=== PATIENT | male | born 1965 | race Caucasian/White ===

== ENCOUNTER 2021-09-24 09:39 | Inpatient (IN) | payer MEDICARE, OTHER ==
[~2021-09-24] VITALS: Ht 186.7 cm; Wt 85.7 kg
--- NOTE | 2021-09-24 09:40 | NUR ---
RAMA FROM [facility] C/O COUGH AND CONGESTION SINCE SUNDAY, "STARTED RADIATION TX FOR LUNG CANCER LAST WEEK", 100% ON NON REBREATHER 15L, USUALLY ON O2 IN THE FACILITY AT 4LPM, AAOX3, BREATHING EVEN AND NON LABORED, CONNECTED TO MONITOR, CHANGED INTO A GOWN, AWAITING MD NUNEZ
[2021-09-24] MEDS ORDERED: IV NS 0.9% 500 ML BAG IV ONE (10:00)
--- NOTE | 2021-09-24 10:13 | NUR ---
UNABLE TO PROVIDE URINE AT THIS TIME
--- NOTE | 2021-09-24 10:25 | NUR ---
RN OBGYN AT BEDSIDE
--- NOTE | 2021-09-24 10:29 | NUR ---
COVID SWAB DONE AND SENT TO LAB
[2021-09-24 10:41] LABS: BASOPHILS % (AUTO) 0.1 % (0.0-2.0); EOSINOPHILS % (AUTO) 0.6 % (0.0-6.0); HEMATOCRIT 33 % (39-51); HEMOGLOBIN 11.2 g/dL (13.5-17.5); LYMPHOCYTES # (AUTO) 0.1 K/uL (0.8-4.8); LYMPHOCYTES % (AUTO) 1.6 % (20.0-44.0); MEAN CORPUSCULAR HGB CONC 34 g/dl (31.0-36.0); MEAN CORPUSCULAR VOLUME 80 fL (80-96); MONOCYTES # (AUTO) 0.4 K/uL (0.1-1.30); MONOCYTES % (AUTO) 5.2 % (2.0-12.0); NEUTROPHILS # (AUTO) 6.7 K/uL (1.8-8.9); NEUTROPHILS % (AUTO) 92.5 % (43.0-81.0); PLATELET COUNT (AUTO) 160 K/uL (150-450); RED BLOOD CELL COUNT(AUTO) 4.15 MIL/uL (4.5-6.0); WHITE BLOOD COUNT (AUTO) 7.3 K/uL (4.3-11.0)
[2021-09-24 10:57] LABS: ALANINE AMINOTRANSFERASE 92 U/L (12-78); ALBUMIN 1.8 g/dL (3.4-5.0); ALKALINE PHOSPHATASE 83 U/L (46-116); ASPARTATE AMINOTRANSFERASE 32 U/L (15-37); BILIRUBIN,DIRECT 0.1 mg/dL (0.0-0.2); BILIRUBIN,TOTAL 0.2 mg/dL (0.2-1.0); CALCIUM, SERUM 8.3 mg/dL (8.5-10.1); CARBON DIOXIDE 30 mmol/L (21-32); CHLORIDE 87 mmol/L (98-107); CREATININE 0.4 mg/dL (0.6-1.3); GLUCOSE 138 mg/dL (74-106); POTASSIUM 3.7 mmol/L (3.5-5.1); SODIUM SERUM 121 mmol/L (136-145); TOTAL PROTEIN, SERUM 5.7 g/dL (6.4-8.2); UREA NITROGEN, BLOOD 9 mg/dL (7-18)
--- NOTE | 2021-09-24 11:05 | NUR ---
URINE COLLECTED AND SENT TO LAB
[2021-09-24] MEDS ORDERED: CEFTRIAXONE 1GM BAG (ER ONLY) 50 ML IV ONE (11:07)
--- NOTE | 2021-09-24 11:13 | NUR ---
SISTER AND CONSERVATOR ROMELIA [phone]
[2021-09-24] MEDS ORDERED: CEFTRIAXONE 1GM BAG (ER ONLY) 1 GM/50 ML PIGGYBACK IV ONE (11:30)
[2021-09-24] MEDS ORDERED: AZITHROMYCIN 500 MG in IV D5W 250 ML IV ONE (11:30)
[2021-09-24 11:38] LABS: BILIRUBIN,URINE NEGATIVE (NEGATIVE); COLOR,URINE YELLOW (YELLOW); LEUKOCYTE ESTERASE ,URINE NEGATIVE (NEGATIVE); NITRITE, URINE NEGATIVE (NEGATIVE); PROTEIN,URINE NEGATIVE (NEGATIVE); UGLUCOSE NEGATIVE (NEGATIVE)
--- NOTE | 2021-09-24 12:07 | NUR ---
CALLED NURSE SUP REGARDING PT BED
[2021-09-24] MEDS ORDERED: CHOL200013 PO (12:20)
[2021-09-24] MEDS ORDERED: CALC1TAB30 PO (12:20)
[2021-09-24] MEDS ORDERED: RISP0.5T5 PO (12:20)
[2021-09-24] MEDS ORDERED: PANT40TA2 PO (12:20)
[2021-09-24] MEDS ORDERED: SENN-175 PO (12:20)
[2021-09-24] MEDS ORDERED: APIX5TAB PO (12:20)
[2021-09-24] MEDS ORDERED: DEME150T13 PO (12:20)
[2021-09-24] MEDS ORDERED: DILT180C66 PO (12:20)
[2021-09-24] MEDS ORDERED: TOLV30TA PO (12:20)
[2021-09-24] MEDS ORDERED: AMIN887L PO (12:20)
[2021-09-24] MEDS ORDERED: ZINC220T4 PO (12:20)
[2021-09-24] MEDS ORDERED: SODI100037 PO (12:20)
[2021-09-24] MEDS ORDERED: ASCO500C17 PO (12:20)
[2021-09-24] MEDS ORDERED: OLAN20TA3 PO (12:20)
[2021-09-24] MEDS ORDERED: METO50TA16 PO (12:20)
[2021-09-24] MEDS ORDERED: FURO-145 PO (12:20)
[2021-09-24] MEDS ORDERED: MULT-439 PO (12:20)
--- NOTE | 2021-09-24 12:21 | NUR ---
ROOM 104
--- NOTE | 2021-09-24 12:45 | NUR ---
REPORT GIVEN TO BRODY PAYTON FOR NIA, GOING TO 108 INSTEAD
--- NOTE | 2021-09-24 12:59 | NUR ---
TRANSFERRED TO BED 108 IN STABLE CONDITION
[2021-09-24] MEDS ORDERED: MAG HYDROX/AL HYDROX/SIMETH 30 ML UDC PO PRN (15:00)
[2021-09-24] MEDS ORDERED: ENOXAPARIN SODIUM 40 MG/0.4 ML DISP.SYRIN SQ SCH (15:00)
[2021-09-24] MEDS ORDERED: ZOLPIDEM TARTRATE 5 MG TABLET PO PRN (15:00)
[2021-09-24] MEDS ORDERED: ONDANSETRON HCL/PF 4 MG/2 ML VIAL IVP PRN (15:00)
[2021-09-24] MEDS ORDERED: ACETAMINOPHEN 325 MG TABLET PO PRN (15:00)
[2021-09-24] MEDS ORDERED: Z GUARD REMEDY 4 OZ OINT TP PRN (15:00)
[2021-09-24] MEDS ORDERED: MAGNESIUM HYDROXIDE 30 ML UDC PO PRN (15:00)
[2021-09-24 15:48] LABS: CALCIUM, SERUM 8.2 mg/dL (8.5-10.1); CREATININE 0.4 mg/dL (0.6-1.3); POTASSIUM 3.5 mmol/L (3.5-5.1)
[2021-09-24 16:00] VITALS: BP 133/65
[2021-09-24] MEDS: PROSTAT (PYXIS) 30 ML UDC PO SCH (17:00)
[2021-09-24] MEDS ORDERED: DEMECLOCYCLINE HCL 150 MG TABLET PO SCH (17:00)
[2021-09-24] MEDS: METOPROLOL TARTRATE 50 MG TABLET PO SCH (18:00)
[2021-09-24] MEDS: SODIUM CHLORIDE 1000 MG TABLET PO SCH (18:00)
[2021-09-24] MEDS: risperiDONE 0.25 MG TABLET PO SCH (18:01)
[2021-09-24] MEDS: APIXABAN 5 MG TABLET PO SCH (18:03)
--- NOTE | 2021-09-24 19:33 | NUR ---
RN NOTE PT RESTING IN BED, ALERT AND RESPONSIVE. ON O2 @ 4L VIA NC. WITH O2 SAT OF 94-96. PT STILL NOTED WITH LABORED BREATHING. IVF ON L HAND G22 IN PLACE AND PATENT. ON IVF NS@75/HR. DUE MEDS GIVEN. PM CARE DONE. WILL CONTINUE TO MONITOR.
--- NOTE | 2021-09-24 19:33 | NUR ---
RN NOTES RECEIVED PT FOR CONTINUITY OF CARE. PATIENT IN BED RESTING COMFORTABLY. PT A/OX4 IN NO S/SX OF ACUTE DISTRESS AT THIS TIME; CURRENTLY ON 4L OF 02 VIA NC WITH 02 SAT 95% AT THIS TIME. WILL ENSURE SAFETY MEASURES WITHIN THE SHIFT. PATIENT BED ALARM IS ON. HEAD OF BED ELEVATED. BED IS LOCKED, IN LOWEST POSITION AND SIDE RAILS UP. CALL LIGHT WITHIN REACH OF THE PATIENT. APPLICABLE ISOLATION PRECAUTIONS IN PLACE. WILL CONTINUE TO MONITOR AND REASSESS FOR ANY CHANGES AND WILL CARRY OUT ANY ONGOING AND ACTIVE MD ORDER.
[2021-09-24 20:00] VITALS: BP 112/70
--- NOTE | 2021-09-24 20:07 | NUR ---
RN NOTES PT COMPLAINED OF SOB, UPON ASSESSMENT PT HAVING WHEEZES, MILD PRODUCTIVE COUGH AND SOB. NOTIFIED ONCNETTA WILKINS (BRITTANY FREGOSO) AND ACKNOWLEDGED. ORDERS PLACED BY MD. WILL CARRY OUT ORDERED. ASSISTANT ATHLETIC TRAINER MADE AWARE.
[2021-09-24] MEDS: methylPREDNISolone SOD SUCC 40 MG/ML VIAL IV SCH (20:13)
[2021-09-24] MEDS: SENNOSIDES 8.6 MG TABLET PO SCH (20:13)
[2021-09-24] MEDS: IPRATROPIUM NEB FS 0.5 MG/2.5 ML AMPUL.NEB NEB SCH (20:26)
[2021-09-24] MEDS: ALBUTEROL FS 2.5 MG/0.5 ML VIAL.NEB NEB SCH (20:26)
[2021-09-24] MEDS ORDERED: BENZONATATE 100 MG CAPSULE PO PRN (20:30)
[2021-09-24] MEDS: OLANZAPINE 10 MG TABLET PO SCH (22:13)
[2021-09-25] VITALS: BP_SYST 107; BP_SYST 117; BP_DIAS 76; BP_DIAS 78
[2021-09-25] MEDS: ALBUTEROL FS 2.5 MG/0.5 ML VIAL.NEB NEB SCH ×2 (01:58→08:48)
[2021-09-25] MEDS: IPRATROPIUM NEB FS 0.5 MG/2.5 ML AMPUL.NEB NEB SCH ×4 (01:58→20:15)
[2021-09-25 04:00] VITALS: BP_SYST 108; BP_SYST 126; BP_DIAS 69; BP_DIAS 86
--- NOTE | 2021-09-25 04:00 | NUR ---
RN NOTES NO NOTED CHANGES IN PATIENT CONDITION AT THIS TIME; PATIENT VITALS STABLE, NO SIGNS OF ACUTE RESPIRATORY DISTRESS. AM PATIENT CARE RENDERED.WILL CONTINUE TO MONITOR AND REASSESS FOR ANY CHANGES THROUGHOUT THE SHIFT.
[2021-09-25 06:06] LABS: BASOPHILS % (AUTO) 0.2 % (0.0-2.0); HEMATOCRIT 31 % (39-51); HEMOGLOBIN 10.4 g/dL (13.5-17.5); LYMPHOCYTES # (AUTO) 0.1 K/uL (0.8-4.8); LYMPHOCYTES % (AUTO) 1.8 % (20.0-44.0); MEAN CORPUSCULAR HGB CONC 34 g/dl (31.0-36.0); MEAN CORPUSCULAR VOLUME 81 fL (80-96); MONOCYTES # (AUTO) 0.1 K/uL (0.1-1.30); MONOCYTES % (AUTO) 2.8 % (2.0-12.0); NEUTROPHILS # (AUTO) 3.2 K/uL (1.8-8.9); NEUTROPHILS % (AUTO) 95.2 % (43.0-81.0); PLATELET COUNT (AUTO) 171 K/uL (150-450); RED BLOOD CELL COUNT(AUTO) 3.86 MIL/uL (4.5-6.0); WHITE BLOOD COUNT (AUTO) 3.3 K/uL (4.3-11.0)
--- NOTE | 2021-09-25 06:47 | NUR ---
RN CLOSING NOTE: PATIENT REMAINS IN ROOM IN NO SIGNS OF RESPIRATORY DISTRESS, PATIENT STILL ON 4L OF 02 VIA NC ;TOLERATING WELL SATURATING @ >95% SP02. SAFETY MEASURES IMPLEMENTED, BED IN LOWEST POSITION, LOCKED, SIDE RAILS UP, CALL LIGHT WITHIN REACH. ALL NEEDS AND ORDERS ADDRESSED DURING THE SHIFT. IV ACCESS MAINTAINED INTACT, SECURED AND FLUSHING WELL. ALL DUE MEDS GIVEN ORDERED & SCHEDULED ; PATIENT TOLERATED WELL. PATIENT KEPT CLEAN AND COMFORTABLE WITHIN THE SHIFT. PATIENT ENDORSED TO INCOMING SHIFT RN WITH STABLE VITAL SIGN AND FOR CONTINUITY OF CARE.
--- NOTE | 2021-09-25 07:31 | NUR ---
RN OPENING NOTE RECEIVED PATIENT A/OX4.NO CURRENT COMPLAINTS OF PAIN OR SOB. ON 4L NC TOLERATING WELL. PATIENT NOTED TO HAVE LEFT HAND 22g IV PATENT WITH NO SIGNS OF INFILTRATION. SAFETY MEASURE SIN PLACE, BED LOCKED IN THE LOWEST POSITION, WITH 2 SIDE RAILS UP, SEMI FOWLERS POSITION AND CALL LIGHT WITHIN REACH.
[2021-09-25 08:00] VITALS: BP 128/80
[2021-09-25 08:13] LABS: CALCIUM, SERUM 8.2 mg/dL (8.5-10.1); CREATININE 0.4 mg/dL (0.6-1.3); MAGNESIUM 1.9 mg/dL (1.8-2.4); POTASSIUM 4.1 mmol/L (3.5-5.1)
[2021-09-25] MEDS: ZINC SULFATE 220 MG CAPSULE PO SCH (08:52)
[2021-09-25] MEDS: SENNOSIDES 8.6 MG TABLET PO SCH ×2 (08:52→21:05)
[2021-09-25] MEDS: risperiDONE 0.25 MG TABLET PO SCH ×2 (08:52→17:23)
[2021-09-25] MEDS: methylPREDNISolone SOD SUCC 40 MG/ML VIAL IV SCH ×2 (08:52→17:24)
[2021-09-25] MEDS: PANTOPRAZOLE 40 MG TABLET.DR PO SCH (08:53)
[2021-09-25] MEDS: ASCORBIC ACID 500 MG TABLET PO SCH (08:53)
[2021-09-25] MEDS: SODIUM CHLORIDE 1000 MG TABLET PO SCH ×3 (08:53→17:24)
[2021-09-25] MEDS: CHOLECALCIFEROL 1,000 UNIT TABLET (VIT D3) PO SCH (08:53)
[2021-09-25] MEDS: MULTIVIT W/MINERALS 1 TAB TABLET PO SCH (08:53)
[2021-09-25] MEDS: METOPROLOL TARTRATE 50 MG TABLET PO SCH ×2 (08:54→17:23)
[2021-09-25] MEDS: APIXABAN 5 MG TABLET PO SCH ×2 (08:55→17:25)
[2021-09-25] MEDS ORDERED: TOLVAPTAN 15 MG PO SCH (09:00)
[2021-09-25] MEDS ORDERED: PANTOPRAZOLE 40 MG TABLET.DR PO SCH (09:00)
[2021-09-25] MEDS ORDERED: DILTIAZEM HCL CD 180 MG PO SCH (09:00)
[2021-09-25] MEDS: PROSTAT (PYXIS) 30 ML UDC PO SCH ×2 (09:08→17:27)
[2021-09-25 12:00] VITALS: BP 117/82
[2021-09-25] MEDS: DILTIAZEM HCL 30 MG TABLET PO SCH ×2 (13:22→17:23)
[2021-09-25 14:23] LABS: CALCIUM, SERUM 8.3 mg/dL (8.5-10.1); CREATININE 0.7 mg/dL (0.6-1.3); MAGNESIUM 1.7 mg/dL (1.8-2.4); PHOSPHORUS 2.9 mg/dL (2.5-4.9); POTASSIUM 4.2 mmol/L (3.5-5.1)
[2021-09-25 14:35] LABS: THYROID STIMULATING HORMONE 0.915 uIU/mL (0.358-3.74)
[2021-09-25] MEDS: CEFTRIAXONE 1 G in IV D5W 50 ML IV SCH (15:07)
[2021-09-25] MEDS: ALBUTEROL HALF STRENGTH 1.25 MG/3 ML VIAL.NEB NEB SCH ×2 (15:25→20:15)
[2021-09-25 16:00] VITALS: BP 125/70
[2021-09-25] MEDS ORDERED: MAGNESIUM OXIDE 400 MG TABLET PO ONE (16:00)
[2021-09-25] MEDS: AZITHROMYCIN 500 MG in IV D5W 250 ML IV SCH (16:26)
--- NOTE | 2021-09-25 18:53 | NUR ---
RN CLOSING NOTE: PATIENT REMAINS IN ROOM IN NO SIGNS OF RESPIRATORY DISTRESS, PATIENT STILL ON 4L OF 02 VIA NC ;. SAFETY MEASURES IMPLEMENTED, BED IN LOWEST POSITION, LOCKED, SIDE RAILS UP, CALL LIGHT WITHIN REACH. ALL NEEDS AND ORDERS ADDRESSED DURING THE SHIFT. IV ACCESS MAINTAINED INTACT, SECURED AND FLUSHING WELL. ALL DUE MEDS GIVEN ORDERED & SCHEDULED ; PATIENT TOLERATED WELL. PATIENT KEPT CLEAN AND COMFORTABLE WITHIN THE SHIFT. WILL ENDORSE TO NIGHT NURSE FOR NIA.
[2021-09-25 20:00] VITALS: BP 104/66
[2021-09-25] MEDS: OLANZAPINE 10 MG TABLET PO SCH (21:05)
[2021-09-26] VITALS: BP_SYST 117; BP_SYST 126; BP_DIAS 78; BP_DIAS 86
[2021-09-26] MEDS: IPRATROPIUM NEB FS 0.5 MG/2.5 ML AMPUL.NEB NEB SCH ×4 (01:48→20:10)
[2021-09-26] MEDS: ALBUTEROL HALF STRENGTH 1.25 MG/3 ML VIAL.NEB NEB SCH ×4 (01:48→20:09)
[2021-09-26] MEDS: IV NS 0.9% 1,000 ML IV PRN (03:26)
[2021-09-26 04:00] VITALS: BP 126/86
--- NOTE | 2021-09-26 06:55 | NUR ---
RN CLOSING NOTE, PATIENT IN BED, NO SOB/ACUTE DISTRESS NOTED, ON 4L OF VIA NC, NSR IN TELE MONITOR WITH HR 60-90S, NO SIGNIFICANT CHANGE IN CONDITION DURING THE NIGHT, ALL SAFETY MEASURES IMPLEMENTED, BED LOCKED AND LOWEST POSITION, SIDE RAILS UP, CALL LIGHT WITHIN REACH, PATIENT KEPT DRY AND CLEAN, WILL ENDORSE CONTINUITY OF CARE TO ONCOMING NURSE.
[2021-09-26 07:19] LABS: BASOPHILS % (AUTO) 0.3 % (0.0-2.0); HEMATOCRIT 32 % (39-51); HEMOGLOBIN 10.6 g/dL (13.5-17.5); LYMPHOCYTES # (AUTO) 0.1 K/uL (0.8-4.8); LYMPHOCYTES % (AUTO) 2.2 % (20.0-44.0); MEAN CORPUSCULAR HGB CONC 34 g/dl (31.0-36.0); MEAN CORPUSCULAR VOLUME 81 fL (80-96); MONOCYTES # (AUTO) 0.3 K/uL (0.1-1.30); MONOCYTES % (AUTO) 5.2 % (2.0-12.0); NEUTROPHILS # (AUTO) 4.7 K/uL (1.8-8.9); NEUTROPHILS % (AUTO) 92.3 % (43.0-81.0); PLATELET COUNT (AUTO) 191 K/uL (150-450); WHITE BLOOD COUNT (AUTO) 5.1 K/uL (4.3-11.0)
[2021-09-26] MEDS: PANTOPRAZOLE 40 MG TABLET.DR PO SCH (07:30)
[2021-09-26 07:39] LABS: ALBUMIN 1.8 g/dL (3.4-5.0); BILIRUBIN,TOTAL 0.1 mg/dL (0.2-1.0); CALCIUM, SERUM 8.3 mg/dL (8.5-10.1); CREATININE 0.4 mg/dL (0.6-1.3); MAGNESIUM 1.8 mg/dL (1.8-2.4); PHOSPHORUS 3.1 mg/dL (2.5-4.9); POTASSIUM 4.1 mmol/L (3.5-5.1); TOTAL PROTEIN, SERUM 5.4 g/dL (6.4-8.2)
[2021-09-26 08:00] VITALS: BP 126/86
[2021-09-26] MEDS: methylPREDNISolone SOD SUCC 40 MG/ML VIAL IV SCH ×2 (08:52→18:03)
[2021-09-26] MEDS: ASCORBIC ACID 500 MG TABLET PO SCH (08:53)
[2021-09-26] MEDS: CHOLECALCIFEROL 1,000 UNIT TABLET (VIT D3) PO SCH (08:53)
[2021-09-26] MEDS: MULTIVIT W/MINERALS 1 TAB TABLET PO SCH (08:53)
[2021-09-26] MEDS: SODIUM CHLORIDE 1000 MG TABLET PO SCH ×3 (08:53→18:02)
[2021-09-26] MEDS: DILTIAZEM HCL 30 MG TABLET PO SCH ×3 (08:53→18:02)
[2021-09-26] MEDS: ZINC SULFATE 220 MG CAPSULE PO SCH (08:54)
[2021-09-26] MEDS: SENNOSIDES 8.6 MG TABLET PO SCH ×2 (08:54→21:44)
[2021-09-26] MEDS: METOPROLOL TARTRATE 50 MG TABLET PO SCH ×2 (08:54→18:01)
[2021-09-26] MEDS: risperiDONE 0.25 MG TABLET PO SCH ×2 (08:55→18:02)
[2021-09-26] MEDS: APIXABAN 5 MG TABLET PO SCH ×2 (08:58→18:04)
[2021-09-26] MEDS: PROSTAT (PYXIS) 30 ML UDC PO SCH ×2 (09:00→18:05)
[2021-09-26 12:00] VITALS: BP 126/89
[2021-09-26 16:00] VITALS: BP 122/85
[2021-09-26] MEDS: CEFTRIAXONE 1 G in IV D5W 50 ML IV SCH (16:02)
[2021-09-26] MEDS: AZITHROMYCIN 500 MG in IV D5W 250 ML IV SCH (16:02)
--- NOTE | 2021-09-26 19:25 | NUR ---
RN OPENING NOTE: RECEIVED REPORT AT PATIENT'S BEDSIDE. PATIENT ALERT AND ORIENTED X4. COMMUNICATIVE. INTERMITTENT DYSPNEA AT REST. PATIENT DEMONSTRATES PURSED LIP BREATHING TECHNIQUES. NO C/O DISTRESS. SPO2 93% ON 4L O2 VIA NC. TELEMETRY READING SR. DENIES PAIN. IV ACCESS TO L HAND 22 GAUGE INFUSING NS @ 75ML/HR. SAFETY MEASURES IN PLACE: BED IN LOW, LOCKED POSITION, SIDE RAILS UP X2, HOB ELEVATED TO SEMI-CONDE'S POSITION. PATIENT DEMONSTRATES ABILITY TO USE CALL LIGHT AND VERBALIZE NEEDS EFFECTIVELY. CALL LIGHT AND FREQUENTLY USED ITEMS WITHIN REACH.
--- NOTE | 2021-09-26 19:45 | NUR ---
RN NOTE, PATIENT RESTING IN BED, ON 4L OF 02 VIA NC, NOTED WITH MINIMAL LABORED BREATHING BUT WITH O2 SAT OF 93-95. NSR IN TELE MONITOR. ALL SAFETY MEASURES IMPLEMENTED, BED LOCKED AND LOWEST POSITION, SIDE RAILS UP, CALL LIGHT WITHIN REACH, PATIENT KEPT DRY AND CLEAN. DUE MEDS GIVEN. NEEDS ATTENDED.
[2021-09-26 20:00] VITALS: BP 121/81
--- NOTE | 2021-09-26 21:15 | NUR ---
INSTRUMENT CHECKER NOTIFIED RE: ICU REPORT TELEMETRY READING SR WITH ST ELEVATION. PROVIDED COMPARISON OF ADMISSION EKG. NEW ORDER FOR EKG.
[2021-09-26] MEDS: OLANZAPINE 10 MG TABLET PO SCH (21:45)
--- NOTE | 2021-09-26 22:00 | NUR ---
EKG RESULT NSR.
[2021-09-27] VITALS: BP 134/92
[2021-09-27] MEDS: IV NS 0.9% 1,000 ML IV PRN ×2 (00:48→15:55)
[2021-09-27] MEDS: IPRATROPIUM NEB FS 0.5 MG/2.5 ML AMPUL.NEB NEB SCH ×4 (02:44→19:51)
[2021-09-27] MEDS: ALBUTEROL HALF STRENGTH 1.25 MG/3 ML VIAL.NEB NEB SCH ×4 (02:45→19:51)
[2021-09-27 04:00] VITALS: BP 142/97
[2021-09-27 06:24] LABS: BASOPHILS % (AUTO) 0.1 % (0.0-2.0); HEMATOCRIT 35 % (39-51); HEMOGLOBIN 11.5 g/dL (13.5-17.5); LYMPHOCYTES # (AUTO) 0.1 K/uL (0.8-4.8); LYMPHOCYTES % (AUTO) 1.5 % (20.0-44.0); MEAN CORPUSCULAR HGB CONC 33 g/dl (31.0-36.0); MEAN CORPUSCULAR VOLUME 81 fL (80-96); MONOCYTES # (AUTO) 0.3 K/uL (0.1-1.30); MONOCYTES % (AUTO) 4.9 % (2.0-12.0); NEUTROPHILS # (AUTO) 5.5 K/uL (1.8-8.9); NEUTROPHILS % (AUTO) 93.5 % (43.0-81.0); PLATELET COUNT (AUTO) 230 K/uL (150-450); RED BLOOD CELL COUNT(AUTO) 4.27 MIL/uL (4.5-6.0); WHITE BLOOD COUNT (AUTO) 5.9 K/uL (4.3-11.0)
--- NOTE | 2021-09-27 06:35 | NUR ---
RN CLOSING NOTE: PATIENT IN BED, EYES CLOSED, RR EVEN AND UNLABORED. PATIENT SNORING. EASILY AROUSED BY VOCAL STIMULI. ALERT AND ORIENTED X4. PATIENT EXPERIENCES INTERMITTENT DYSPNEA AT REST. PATIENT DEMONSTRATES PURSED LIP, DEEP BREATHING AND COUGHING TECHNIQUES. NO C/O DISTRESS. SPO2 ~93% ON 4L O2 VIA NC. TELEMETRY READING SR. DENIES PAIN. IV ACCESS TO L HAND 22 GAUGE INFUSING NS @ 75ML/HR. SAFETY MEASURES IN PLACE: BED IN LOW, LOCKED POSITION, SIDE RAILS UP X2, HOB ELEVATED TO SEMI-CONDE'S POSITION. PATIENT DEMONSTRATES ABILITY TO USE CALL LIGHT AND VERBALIZE NEEDS EFFECTIVELY. CALL LIGHT AND FREQUENTLY USED ITEMS WITHIN REACH.
[2021-09-27] MEDS: PANTOPRAZOLE 40 MG TABLET.DR PO SCH (06:45)
--- NOTE | 2021-09-27 07:30 | NUR ---
RN OPENING NOTES RECEIVED PATIENT IN BED, AWAKE ALERT ORIENTED X 4, VERBALLY RESPONSIVE. NOT IN DISTRESS NO COMPLAINTS OF PAIN NOTED. O2 @ 3LPM SATING 97%, WITH IV SITE RIGHT UPPER MIDLINE PATENT WITH IV RUNNING NS @ 75CCHR, LEFT IV SITE SALINE LOCK. BED TO LOWEST POSITION AND LOCKED. CALL LIGHT WITHIN REACH.
[2021-09-27 07:31] LABS: CALCIUM, SERUM 8.4 mg/dL (8.5-10.1); CREATININE 0.5 mg/dL (0.6-1.3); MAGNESIUM 1.7 mg/dL (1.8-2.4); PHOSPHORUS 3.4 mg/dL (2.5-4.9); POTASSIUM 4.1 mmol/L (3.5-5.1)
[2021-09-27 08:00] VITALS: BP 138/97
--- NOTE | 2021-09-27 08:03 | NUR ---
o2 flow decreased from 3 lpm to 2 lpm o2 flow via nasal cannula. pt. is awake and alert with spo2 96% and no increased work of breathing noted. Addendum: 09/27/21 at 0805 by DG HERMOSILLO RT Amended: Links added.
[2021-09-27] MEDS: methylPREDNISolone SOD SUCC 40 MG/ML VIAL IV SCH ×2 (08:34→16:03)
[2021-09-27] MEDS: DILTIAZEM HCL 30 MG TABLET PO SCH ×3 (08:34→16:03)
[2021-09-27] MEDS: MULTIVIT W/MINERALS 1 TAB TABLET PO SCH (08:35)
[2021-09-27] MEDS: CHOLECALCIFEROL 1,000 UNIT TABLET (VIT D3) PO SCH (08:35)
[2021-09-27] MEDS: SENNOSIDES 8.6 MG TABLET PO SCH ×2 (08:35→22:07)
[2021-09-27] MEDS: ZINC SULFATE 220 MG CAPSULE PO SCH (08:35)
[2021-09-27] MEDS: ASCORBIC ACID 500 MG TABLET PO SCH (08:35)
[2021-09-27] MEDS: risperiDONE 0.25 MG TABLET PO SCH ×2 (08:35→16:03)
[2021-09-27] MEDS: METOPROLOL TARTRATE 50 MG TABLET PO SCH ×2 (08:35→16:04)
[2021-09-27] MEDS: SODIUM CHLORIDE 1000 MG TABLET PO SCH ×3 (08:35→16:03)
[2021-09-27] MEDS: PROSTAT (PYXIS) 30 ML UDC PO SCH ×2 (08:36→16:05)
[2021-09-27] MEDS: APIXABAN 5 MG TABLET PO SCH ×2 (08:37→16:04)
[2021-09-27 10:55] LABS: CALCIUM, SERUM 8.1 mg/dL (8.5-10.1); CREATININE 0.4 mg/dL (0.6-1.3); POTASSIUM 3.9 mmol/L (3.5-5.1)
[2021-09-27 12:00] VITALS: BP 130/87
[2021-09-27] MEDS ORDERED: MAGNESIUM OXIDE 400 MG TABLET PO ONE (12:00)
--- NOTE | 2021-09-27 12:46 | NUR ---
RN NOTES PATIENT'S CT SCAN RESULT IN. CHARGE NURSE MADE AWARE AND DR. HORNE MADE AWARE FOR PER MD ROUNDED THIS MORNING WILL CHECK THE RESULT FOR CT FIRST PRIOR TO THE PLAN FOR OUTPATIENT RADIATION.
--- NOTE | 2021-09-27 13:09 | NUR ---
RN NOTES DR. HORNE CLEARED PATIENT FOR OUTPATIENT RADIATION THERAPY. BRITTANY VELEZ MADE AWARE AWAITING ORDER IF PATIENT SAFE FOR DC TO SNF.
--- NOTE | 2021-09-27 13:57 | NUR ---
RN NOTES RUDY VELEZ RESPONDED FOR PATIENT NEEDS TO BE CLEARED FROM ONCOLOGY
[2021-09-27] MEDS: CEFTRIAXONE 1 G in IV D5W 50 ML IV SCH (14:02)
--- NOTE | 2021-09-27 15:05 | NUR ---
RN NOTES CALLED [facility] # [phone] AND SPOKE WITH CLARE ON REQUEST TO OBTAIN MEDICAL RECORDS FROM RADIATION ONCOLOGIST DR. PAUL VASQUEZ, AND WAS GIVEN THE FAX NUMBER [phone]. WAS GIVEN THE CONTACT NUMBER FOR OFFICE OF DR. GILLES GIRON PRIMARY ONCOLOGIST # [phone] AND SPOKE WITH CHUCK REGARDING THE REQUEST AND TO FOLLOW UP CALL AFTER 24HRS IF HAVEN'T RECEIVED THE FAXED MEDICAL RECORDS FROM DR. GIRON'S OFFICE.
--- NOTE | 2021-09-27 15:15 | NUR ---
RN NOTES RECEIVED MEDICAL RECORDS FROM RADIATION ONCOLOGIST AND FILED ON CHART. CHARGE NURSE AWARE
[2021-09-27 15:41] LABS: FERRITIN 202 ng/mL (8-388)
[2021-09-27] MEDS: AZITHROMYCIN 500 MG in IV D5W 250 ML IV SCH (15:55)
[2021-09-27 16:00] VITALS: BP 124/85
[2021-09-27 16:28] LABS: IRON, SERUM 75 ug/dl (50-175); TOTAL IRON BINDING CAPACITY 215 ug/dl (250-450)
--- NOTE | 2021-09-27 18:44 | NUR ---
RN CLOSING NOTES PATIENT AWAKE IN BED, VERBALLY RESPONSIVE. NOT IN DISTRESS NO COMPLAINTS OF PAIN NOTED. CONSENT FOR MRI BRAIN WWO CONTRAST OBTAIN FROM THE PATIENT. BED TO LOWEST POSITION AND LOCKED. NEEDS ATTENDED. WILL ENDORSE TO DRILL PRESS SET UP OPERATOR RADIAL NURS ON DUTY.
[2021-09-27 20:00] VITALS: BP 140/89
[2021-09-27] MEDS: OLANZAPINE 10 MG TABLET PO SCH (22:07)
[2021-09-28] VITALS: BP_SYST 129; BP_SYST 140; BP_DIAS 80; BP_DIAS 89
[2021-09-28] MEDS: IPRATROPIUM NEB FS 0.5 MG/2.5 ML AMPUL.NEB NEB SCH ×3 (01:51→13:43)
[2021-09-28] MEDS: ALBUTEROL HALF STRENGTH 1.25 MG/3 ML VIAL.NEB NEB SCH ×3 (01:51→13:43)
[2021-09-28 04:00] VITALS: BP 134/91
[2021-09-28 06:25] LABS: HEMATOCRIT 34 % (39-51); HEMOGLOBIN 11.3 g/dL (13.5-17.5); LYMPHOCYTES # (AUTO) 0.1 K/uL (0.8-4.8); LYMPHOCYTES % (AUTO) 2.2 % (20.0-44.0); MEAN CORPUSCULAR HGB CONC 34 g/dl (31.0-36.0); MEAN CORPUSCULAR VOLUME 80 fL (80-96); MONOCYTES # (AUTO) 0.4 K/uL (0.1-1.30); MONOCYTES % (AUTO) 6.1 % (2.0-12.0); NEUTROPHILS % (AUTO) 91.7 % (43.0-81.0); PLATELET COUNT (AUTO) 236 K/uL (150-450); RED BLOOD CELL COUNT(AUTO) 4.18 MIL/uL (4.5-6.0); WHITE BLOOD COUNT (AUTO) 6.6 K/uL (4.3-11.0)
[2021-09-28 06:29] LABS: CALCIUM, SERUM 8.9 mg/dL (8.5-10.1); CREATININE 0.5 mg/dL (0.6-1.3); MAGNESIUM 1.9 mg/dL (1.8-2.4); PHOSPHORUS 3.2 mg/dL (2.5-4.9); POTASSIUM 4.3 mmol/L (3.5-5.1)
--- NOTE | 2021-09-28 06:50 | NUR ---
RN CLOSING NOTES, PATIENT ASLEEP AT THIS TIME, AROUSES TO VERBAL STIMULI, CONT ON 3LPM NC NO SOB/ACUTE DISTRESS NOTED, BREATHING TX SCHEDULED ADMINISTERED ORDERED, NSR IN TELE MONITOR WITH HR 70-80S, NO SIGNIFICANT CHANGE IN CONDITION DURING LAST NIGHT, VITAL SIGNS WNL, WITH OPTMAL O2 SAT LEVEL, WILL HAVE MRI WWO CONTRAST TODAY, BED LOCKED AND IN LOWEST POSITION, S/R OF BED UP X2, CALL LIGHT W/I REACH, ALL SAFETY PRECAUTIONS FOLLOWED, WILL ENDORSE CONTINUITY OF CARE TO ONCOMING NURSE.
--- NOTE | 2021-09-28 07:30 | NUR ---
RN NOTES PATIENT SLEEPING IN BED, ABLE TO BE AWAKENED, NOT ACUTE DISTRESS. ON 4L O2 VIA NC, BREATHING EVEN AND UNLABORED. IV LINE INTACT AND PATENT. SAFETY MEASURES IN PLACE. WILL CONTINUE TO MONITOR.
[2021-09-28 08:00] VITALS: BP 145/89
[2021-09-28 08:07] LABS: IMMUNOGLOBULIN A, SERUM 287 mg/dL (90-386); IMMUNOGLOBULIN G, SERUM 637 mg/dL (603-1613); IMMUNOGLOBULIN M, SERUM 38 mg/dL (20-172)
[2021-09-28] MEDS: SENNOSIDES 8.6 MG TABLET PO SCH (08:35)
[2021-09-28] MEDS: CHOLECALCIFEROL 1,000 UNIT TABLET (VIT D3) PO SCH (08:36)
[2021-09-28] MEDS: MULTIVIT W/MINERALS 1 TAB TABLET PO SCH (08:36)
[2021-09-28] MEDS: ZINC SULFATE 220 MG CAPSULE PO SCH (08:36)
[2021-09-28] MEDS: ASCORBIC ACID 500 MG TABLET PO SCH (08:36)
[2021-09-28] MEDS: DILTIAZEM HCL 30 MG TABLET PO SCH ×3 (08:37→16:47)
[2021-09-28] MEDS: METOPROLOL TARTRATE 50 MG TABLET PO SCH ×2 (08:37→16:47)
[2021-09-28] MEDS: methylPREDNISolone SOD SUCC 40 MG/ML VIAL IV SCH ×2 (08:37→16:46)
[2021-09-28] MEDS: APIXABAN 5 MG TABLET PO SCH ×2 (08:46→16:49)
[2021-09-28] MEDS: PANTOPRAZOLE 40 MG TABLET.DR PO SCH (08:54)
[2021-09-28] MEDS: risperiDONE 0.25 MG TABLET PO SCH ×2 (08:54→16:47)
[2021-09-28] MEDS: SODIUM CHLORIDE 1000 MG TABLET PO SCH ×3 (08:54→16:46)
[2021-09-28] MEDS: PROSTAT (PYXIS) 30 ML UDC PO SCH ×2 (08:55→16:48)
[2021-09-28] MEDS ORDERED: IOHEXOL-300 100 ML VIAL IV ONE (09:42)
[2021-09-28] MEDS ORDERED: IV NS 0.9% 250 ML IV ONE (09:42)
[2021-09-28] MEDS ORDERED: CT SWABBABLE VALVE TRANS SET 1 EA INFUS.SET MC ONE (09:43)
--- NOTE | 2021-09-28 09:59 | NUR ---
RN NOTES PATIENT SEEN BY DR. DAMICO W/ ORDERS NOTED: D/C FLUIDS AND MAINTAIN FLUID RESTRICTION 800CC/DAY.
--- NOTE | 2021-09-28 10:15 | NUR ---
RN NOTES PATIENT TAKEN TO RADIOLOGY FOR MRI PROCEDURE VIA GURNEY.
[2021-09-28 11:07] LABS: *SPE A/G RATIO 0.8 (0.7-1.7); *SPE ALPHA-1-GLOBULIN 0.3 g/dL (0.0-0.4); *SPE ALPHA-2-GLOBULIN 1.1 g/dL (0.4-1.0); *SPE M-SPIKE Not Observed g/dL (Not Observed)
[2021-09-28 11:17] LABS: LYMPHOCYTES % (MANUAL) 3 % (16-48); METAMYELOCYTES % 1 % (0-0); MONOCYTES % (MANUAL) 8 % (0-11.0); NEUTROPHILS % (MANUAL) 88 (42-76)
[2021-09-28 12:00] VITALS: BP 136/90
[2021-09-28] MEDS ORDERED: IPRA0.2S9 NEB (12:14)
[2021-09-28] MEDS ORDERED: METH4TAB17 PO (12:14)
[2021-09-28] MEDS ORDERED: ALBU1.25 NEB (12:14)
[2021-09-28] MEDS ORDERED: LEVO750T46 PO (12:14)
--- NOTE | 2021-09-28 12:17 | NUR ---
RN NOTES PATIENT RETURNED FROM RADIOLOGY PROCEDURE AND SEEN BY DR. VELEZ TODAY W/ ORDER NOTED.
[2021-09-28] MEDS: CEFTRIAXONE 1 G in IV D5W 50 ML IV SCH (14:34)
[2021-09-28] MEDS: AZITHROMYCIN 500 MG in IV D5W 250 ML IV SCH (14:35)
[2021-09-28 16:00] VITALS: BP 139/98
[2021-09-28 16:47] VITALS: BP 139/98
--- NOTE | 2021-09-28 17:55 | NUR ---
RN NOTES PATIENT REPORT, DISCHARGE INSTRUCTION AND EDUCATION PROVIDED TO TATA MARTINI RESIDENTIAL LAWN SPECIALIST AT [facility].
--- NOTE | 2021-09-28 17:58 | NUR ---
RN NOTES PATIENT REFUSED SKIN CHECK TO TAKE PHOTO OF SKIN ISSUES; PATIENT STATED "NO I'M OKAY THANK YOU." RIGHT TO REFUSE RESPECTED.
--- NOTE | 2021-09-28 18:21 | NUR ---
RN NOTES EMT AT BEDSIDE TO RESEARCH HOME ECONOMIST PATIENT. BEDSIDE ENDORSEMENT DONE. PATIENT SEEN EARLIER BY DR. VELEZ W/ ORDER FOR DISCHARGE BACK TO SNF. REPORT GIVEN TO TATA MARTINI FOAM RUBBER CURER. PERIPHERAL LINE REMOVED; MIDLINE TO BE REMOVED AT SNF, ZACH Bellamy/ TATA FOAM RUBBER CURER. PATIENT UNABLE TO SIGN DISCHARGE FORM BUT PROVIDED VERBAL CONSENT. CHARGE NURSE AND DNP AWARE OF DISCHARGE.
== END 2021-09-28 18:23 | DRG 193 ==
LOC: ER 09:47 → TELE1 12:38
PROVIDERS: ADMIT Student in an Organized Health Care Education/Training Program; ATTEND Nurse Practitioner Acute Care
PROC: 05H533Z Insertion of Infusion Device into Right Subclavian Vein, Percutaneous Approach (ICD-10-PCS; principal; 2021-09-25)
PROC: B546ZZA Ultrasonography of Right Subclavian Vein, Guidance (ICD-10-PCS; 2021-09-25)
DX: J15.9 Unspecified bacterial pneumonia (principal); J96.01 Acute respiratory failure with hypoxia; E43 Unspecified severe protein-calorie malnutrition; J44.0 Chronic obstructive pulmonary disease with (acute) lower respiratory infection; J98.11 Atelectasis; E22.2 Syndrome of inappropriate secretion of antidiuretic hormone; C34.90 Malignant neoplasm of unspecified part of unspecified bronchus or lung; Z79.01 Long term (current) use of anticoagulants; Z87.891 Personal history of nicotine dependence; I48.91 Unspecified atrial fibrillation; D35.02 Benign neoplasm of left adrenal gland; D64.9 Anemia, unspecified; I10 Essential (primary) hypertension; K21.9 Gastro-esophageal reflux disease without esophagitis; K44.9 Diaphragmatic hernia without obstruction or gangrene; E88.09 Other disorders of plasma-protein metabolism, not elsewhere classified; E86.0 Dehydration; Z68.24 Body mass index [BMI] 24.0-24.9, adult
CPT/HCPCS: 36415; 71045-TC; 71250-TC; 71260-TC; 80048-TC; 80053-TC; 80076-TC; 82378; 82533; 82728-TC; 82784; 83540-TC; 83605-TC; 83735-TC; 84100-TC; 84155; 84165; 84443-TC; 84484-TC; 84550-TC; 85025-TC; 85730-TC; 86334; 87040-TC; 87086-TC; 94799-TC; G0378; J0456; J0696; J2920; J7030; J7040; J7050; J7060; Q9967

== ENCOUNTER 2021-11-09 15:17 | Inpatient (IN) | payer MEDICARE, OTHER ==
[~2021-11-09] VITALS: Ht 175.3 cm; Wt 87.1 kg
[~2021-11-09 15:17] MED LIST: ALBU1.25 NEB; AMIN887L PO; APIX5TAB PO; ASCO500C17 PO; CALC1TAB30 PO; CHOL200013 PO; DEME150T13 PO; DILT180C66 PO; FURO-145 PO; IPRA0.2S9 NEB; LEVO750T46 PO; METH4TAB17 PO; METO50TA16 PO; MULT-439 PO; OLAN20TA3 PO; PANT40TA2 PO; RISP0.5T5 PO; SENN-175 PO; SODI100037 PO; TOLV30TA PO; ZINC220T4 PO
[2021-11-09] MEDS ORDERED: Magnesium 1GM/D5W 100ML PREMIX 200 ML IV ONE ×2 (15:38→16:00)
[2021-11-09] MEDS ORDERED: IPRATROPIUM NEB FS 0.5 MG/2.5 ML AMPUL.NEB ONE (15:39)
[2021-11-09] MEDS ORDERED: ALBUTEROL FS 2.5 MG/3 ML VIAL.NEB ONE (15:39)
--- NOTE | 2021-11-09 15:39 | NUR ---
MOVE SHEET SUBMITTED AND CALLED FOR [facility] BED.
--- NOTE | 2021-11-09 15:40 | NUR ---
RT AT BEDSIDE FOR HHX TX AND ABG.
[2021-11-09] MEDS ORDERED: ASCO-352 PO (15:47)
[2021-11-09] MEDS ORDERED: RISP0.2515 PO (15:47)
[2021-11-09] MEDS ORDERED: ALBU2.5V38 IH (15:47)
[2021-11-09] MEDS ORDERED: IPRA0.2S9 IH (15:47)
[2021-11-09] MEDS ORDERED: DILT90TA2 PO (15:47)
[2021-11-09] MEDS ORDERED: methylPREDNISolone SOD SUCC 125 MG/2ML VIAL ONE (15:52)
[2021-11-09] MEDS ORDERED: ALBUTEROL FS 2.5 MG/3 ML VIAL.NEB NEB ONE (16:00)
[2021-11-09] MEDS ORDERED: IPRATROPIUM NEB FS 0.5 MG/2.5 ML AMPUL.NEB NEB ONE (16:00)
[2021-11-09] MEDS ORDERED: methylPREDNISolone SOD SUCC 125 MG/2ML VIAL IV ONE (16:00)
[2021-11-09 16:02] LABS: ABG BASE EXCESS 15.2 mmol/L; ABG PCO2 63.8 mmHg (35.0-45.0); ABG PO2 47.1 mmHg (75.0-100.0); COHb 0.2 % (0.5-1.5); MetHb 0.4 % (0.0-1.5); O2Hb 82.9 % (94.0-97.0); SITE, ABG Right Radial; VENT MODE, BG NASAL CANNULA
--- NOTE | 2021-11-09 16:17 | NUR ---
BED ASSIGNED 105
--- NOTE | 2021-11-09 16:18 | NUR ---
COVID SWAB SENT TO LAB
[2021-11-09 16:29] LABS: BASOPHILS % (AUTO) 0.3 % (0.0-2.0); EOSINOPHILS % (AUTO) 1.4 % (0.0-6.0); HEMATOCRIT 36 % (39-51); HEMOGLOBIN 11.6 g/dL (13.5-17.5); LYMPHOCYTES # (AUTO) 0.1 K/uL (0.8-4.8); LYMPHOCYTES % (AUTO) 0.8 % (20.0-44.0); MEAN CORPUSCULAR HGB CONC 32 g/dl (31.0-36.0); MEAN CORPUSCULAR VOLUME 88 fL (80-96); MONOCYTES # (AUTO) 1.7 K/uL (0.1-1.30); MONOCYTES % (AUTO) 15.5 % (2.0-12.0); NEUTROPHILS # (AUTO) 8.9 K/uL (1.8-8.9); PLATELET COUNT (AUTO) 328 K/uL (150-450); WHITE BLOOD COUNT (AUTO) 10.8 K/uL (4.3-11.0)
--- NOTE | 2021-11-09 16:45 | NUR ---
[facility] CALLED SQL DEVELOPER PAGED.
--- NOTE | 2021-11-09 17:24 | NUR ---
REPORT GIVEN TO COLEMAN (RN).
[2021-11-09 17:45] VITALS: BP 137/82
--- NOTE | 2021-11-09 17:46 | NUR ---
RN NOTE PATIENT RECEIVED FROM ER, PLACED IN ROOM 105. BP 137/82, HR 106, T 97.9, R 74 O2 96% ON SIMPLE MASK 10 LITERS. RECEIVED REPORT FROM SHAINA PAYTON. PATIENT STABLE
[2021-11-09] MEDS ORDERED: Z GUARD REMEDY 4 OZ OINT TP PRN (18:00)
[2021-11-09] MEDS ORDERED: ONDANSETRON HCL/PF 4 MG/2 ML VIAL IVP PRN (18:00)
[2021-11-09] MEDS ORDERED: ACETAMINOPHEN 325 MG TABLET PO PRN (18:00)
--- NOTE | 2021-11-09 18:09 | NUR ---
PT TRANSFERRED TO [facility] PER ACLS PROTOCOL.
--- NOTE | 2021-11-09 18:55 | NUR ---
RN CLOSING NOTE PT IN BED AWAKE, STABLE. A/OX3. 10L SIMPLE MASK. TACHYPNEIC. RHONCHI NOTED THROUGHOUT. NO S/S PAIN NOTED. SINUS TACH ON THE MONITOR. IV 20G LEFT FOREARM, PATENT. PT ABLE TO VOID USING URINAL. GOOD CAP REFILL. SAFETY MEASURES IN PLACE. BED IN LOW POSITION. WHEELS LOCKED IN PLACE. WILL ENDORSE TO COOLING SYSTEM OPERATOR RN.
[2021-11-09 19:01] LABS: CALCIUM, SERUM 9.4 mg/dL (8.5-10.1); CREATININE 0.4 mg/dL (0.6-1.3)
--- NOTE | 2021-11-09 19:30 | NUR ---
RECEIVED PATIENT IN BED ON SIMPLE MASK 10L, WITH 02 99%, TACHYPNEIC WITH RR 40, A/O X3 ABLE TO VERBALIZE NEEDS AND CONCERNS, SINUS TSVHY WITH HR 115S AT THIS TIME, IV SITE IN LEFT HAND PATENT AND INTACT, PRIOR NURSE GOT RESULTS FOR ABGS AND REPLAYED TO PELEG, AWAITING FOR ORDERS, PATIENT DRY AND CLEAN, BED LOCKED AND IN LOWEST POSITION, S/R OF BED UPX2 UP, CALL LIGHT W/I REACH, WILL CONTINUE TO MONITOR CLOSELY.
--- NOTE | 2021-11-09 19:41 | NUR ---
RECEIVED ORDER FROM DR HORNE TO PLACE PATIENT IN VENTURI MASK 35%, TITRATE TO MAINTAIN O2 88-90%, CXR AND ABGS IN AM, IF PATIENT BECOMES IN DISTRESS TRANSFER TO ICU FOR BIPAP 07/12, ORDERS NOTED AND CARRIED OUT,
[2021-11-09] MEDS: IPRATROPIUM NEB FS 0.5 MG/2.5 ML AMPUL.NEB NEB SCH (19:59)
[2021-11-09] MEDS: ALBUTEROL FS 2.5 MG/3 ML VIAL.NEB NEB SCH (19:59)
[2021-11-09 20:00] VITALS: BP 133/85
[2021-11-09 20:06] LABS: POTASSIUM 4.2 mmol/L (3.5-5.1)
--- NOTE | 2021-11-09 20:13 | NUR ---
PT PLACED ON VENTI MASK PER DR HORNE. BREATHING TX GIVEN. PT IS AWAKE, O2 SAT 98%. CONTINUE TO MONITOR.
[2021-11-09] MEDS: LEVOFLOXACIN 750 MG /D5W 150ML 750 MG in PREMIX 1 EA IV SCH (20:30)
[2021-11-09] MEDS: OLANZAPINE 10 MG TABLET PO SCH (21:18)
[2021-11-09] MEDS: methylPREDNISolone SOD SUCC 125 MG/2ML VIAL IV SCH ×2 (21:18→23:30)
--- NOTE | 2021-11-09 23:33 | NUR ---
SOLU- MEDROL IV NOT GIVEN AT THIS TIME SINCE ADMINISTERED AT 2100 SCHEDULED, FREQUENCY Q8HRS IN SEP, VERIFIED WITH [facility], PER THEM FOLLOW THE NEXT SCHEDULE AT 0730.
[2021-11-10] VITALS: BP 139/86
[2021-11-10] MEDS: ALBUTEROL FS 2.5 MG/3 ML VIAL.NEB NEB SCH ×4 (01:19→19:48)
[2021-11-10] MEDS: IPRATROPIUM NEB FS 0.5 MG/2.5 ML AMPUL.NEB NEB SCH ×4 (01:19→19:48)
[2021-11-10 04:00] VITALS: BP 141/88
[2021-11-10 06:09] LABS: BASOPHILS % (AUTO) 0.2 % (0.0-2.0); HEMATOCRIT 34 % (39-51); HEMOGLOBIN 11.2 g/dL (13.5-17.5); LYMPHOCYTES # (AUTO) 0.1 K/uL (0.8-4.8); LYMPHOCYTES % (AUTO) 1.1 % (20.0-44.0); MEAN CORPUSCULAR HGB CONC 33 g/dl (31.0-36.0); MEAN CORPUSCULAR VOLUME 87 fL (80-96); MONOCYTES # (AUTO) 0.1 K/uL (0.1-1.30); MONOCYTES % (AUTO) 2.1 % (2.0-12.0); NEUTROPHILS # (AUTO) 5.5 K/uL (1.8-8.9); NEUTROPHILS % (AUTO) 96.6 % (43.0-81.0); PLATELET COUNT (AUTO) 305 K/uL (150-450); WHITE BLOOD COUNT (AUTO) 5.7 K/uL (4.3-11.0)
--- NOTE | 2021-11-10 06:39 | NUR ---
RN CLOSING NOTES, PATIENT IN BED AWAKE, A/O X3 ABLE TO VERBALIZE NEEDS AND CONCERNS, WITH LIMITED HOURS OF SLEEP LAST NIGHT, ON VENTURI MASK 35% FIO2% PER DR HORNE TO MAINTAINED O2 88-90%, RR 20-30S, SINUS TACHY IN TELE MONITOR WITH HR 110S, IV SITE IN LEFT HAND AND BERNA MIDLINE PATENT AND INTACT, NO SIGNIFICANT CHANGE DURING THE NIGHT, REMAINED STABLE, PER PELEG IF BECOMES IN DISTRESS SEND PATIENT TO ICU FOR BIPAP, SO FAR PT TOLERATED VENTURI MASK, BED LOCKED AND IN LOWEST POSITION, S/R OF BED UPX2 UP, CALL LIGHT W/I REACH, WILL ENDORSE CONTINUITY OF CARE TO ONCOMING NURSE.
[2021-11-10 07:20] LABS: CALCIUM, SERUM 9.2 mg/dL (8.5-10.1); CREATININE 0.4 mg/dL (0.6-1.3); MAGNESIUM 1.6 mg/dL (1.8-2.4); PHOSPHORUS 3.3 mg/dL (2.5-4.9)
--- NOTE | 2021-11-10 07:46 | NUR ---
RN OPENING NOTE PATIENT IN BED AWAKE, A/O X3 ABLE TO VERBALIZE NEEDS AND CONCERNS, WITH LIMITED HOURS OF SLEEP LAST NIGHT, ON VENTURI MASK 35% FIO2% PER DR HORNE TO MAINTAINED O2 88-90%, RR 20-30S, SINUS TACHY IN TELE MONITOR WITH HR 112, IV SITE IN LEFT HAND AND BERNA MIDLINE PATENT AND INTACT, PER DR HORNE IF BECOMES IN DISTRESS SEND PATIENT TO ICU FOR BIPAP, SO FAR PT TOLERATED VENTURI MASK, BED LOCKED AND IN LOWEST POSITION, S/R OF BED UPX2 UP, CALL LIGHT W/I REACH.
[2021-11-10 08:00] VITALS: BP 146/88
[2021-11-10] MEDS: PANTOPRAZOLE 40 MG TABLET.DR PO SCH ×2 (08:12→08:15)
[2021-11-10] MEDS: DILTIAZEM HCL 30 MG TABLET PO SCH ×3 (08:15→16:15)
[2021-11-10] MEDS: CHOLECALCIFEROL 1,000 UNIT TABLET (VIT D3) PO SCH (08:16)
[2021-11-10] MEDS: methylPREDNISolone SOD SUCC 125 MG/2ML VIAL IV SCH ×3 (08:16→22:30)
[2021-11-10] MEDS: CALCIUM CARBONATE 500 MG TAB.CHEW PO SCH (08:16)
[2021-11-10] MEDS: MULTIVIT W/MINERALS 1 TAB TABLET PO SCH (08:16)
[2021-11-10] MEDS: ZINC SULFATE 220 MG CAPSULE PO SCH (08:16)
[2021-11-10] MEDS: ASCORBIC ACID 500 MG TABLET PO SCH (08:16)
[2021-11-10] MEDS: METOPROLOL TARTRATE 50 MG TABLET PO SCH ×2 (08:17→16:15)
[2021-11-10] MEDS: risperiDONE 0.25 MG TABLET PO SCH ×2 (08:17→16:15)
[2021-11-10] MEDS: PROSOURCE / PROSTAT (PYXIS) 30 ML UDC PO SCH ×2 (08:18→16:17)
[2021-11-10] MEDS: APIXABAN 5 MG TABLET PO SCH ×2 (08:19→16:17)
[2021-11-10] MEDS ORDERED: Medication Not On Formulary EA (Calcium Carbonate/Vitamin D3 (Os-Cal 500+D Tablet) 1 EAC PO SCH (09:00)
[2021-11-10] MEDS ORDERED: DEMECLOCYCLINE HCL 150 MG TABLET PO SCH (09:00)
[2021-11-10] MEDS ORDERED: TOLVAPTAN 15 MG PO SCH (09:00)
[2021-11-10 09:03] LABS: ABG BASE EXCESS 15.5 mmol/L; ABG OXYGEN SATURATION 91.3 % (92.0-98.5); ABG PCO2 65.2 mmHg (35.0-45.0); ABG PH 7.434 (7.350-7.450); ABG PO2 63.6 mmHg (75.0-100.0); AaDO2 110.2 mmHg; COHb 0.7 % (0.5-1.5); MetHb 0.2 % (0.0-1.5); O2Hb 90.5 % (94.0-97.0); SITE, ABG Left Radial
[2021-11-10] MEDS ORDERED: MAGNESIUM OXIDE 400 MG TABLET PO ONE (10:00)
[2021-11-10] MEDS: acetaZOLAMIDE 250 MG TABLET PO SCH (11:28)
[2021-11-10 12:00] VITALS: BP 126/83
--- NOTE | 2021-11-10 17:38 | NUR ---
RN NOTE PROVIDER CC INFORMED PATIENT HAS BEEN HAVING EPISODES OF HEMATURIA FOLLOWED BY CLEAR YELLOW URINE. NO NEW ORDERS.
--- NOTE | 2021-11-10 17:39 | NUR ---
RN NOTE RECEIVED CRITICAL LAB HGB 7.0 HCT 22. INFORMED PROVIDER CC. PER PROVIDER MONITOR CBC WILL BE DRAWN IN AM.
--- NOTE | 2021-11-10 18:46 | NUR ---
RN CLOSING NOTE PATIENT IN BED AWAKE, A/O X3 ABLE TO VERBALIZE NEEDS AND CONCERNS, ON VENTURI MASK 35% FIO2% PER DR HORNE TO MAINTAINED O2 88-90%, RR 20-30S, SINUS TACHY IN TELE MONITOR WITH HR 112, IV SITE IN LEFT HAND AND BERNA MIDLINE PATENT AND INTACT. ALL SCHEDULED MEDICATION GIVEN. BED LOCKED AND IN LOWEST POSITION, S/R OF BED UPX2 UP, CALL LIGHT W/I REACH. WILL ENDORSE TO NIGHT NURSE FOR NIA
--- NOTE | 2021-11-10 19:00 | NUR ---
RN NOTE RECEIVED PATIENT IN BED, AO X 3-4, IN NO ACUTE DISTRESS, BREATHING IS SHALLOW AND APPEARS LABORED, SATURATION AT 92% ON 10 L VIA VENTURI MASK AT FIO2 OF 35%, SR ON THE MONITOR, HR IS 70. NOTED IV SITE AT L HAND 20G, AND BERNA MIDLINE, PATENT AND FLUSHING WELL, NO S/S OF INFECTION OR INFILTRATION. PATIENT IS CONTINENT AND ABLE TO USE URINAL. SAFETY MEASURES IMPLEMENTED. PATIENT BED ALARM IS ON. HEAD OF BED ELEVATED. BED IS LOCKED, IN LOWEST POSITION AND SIDE RAILS UP. CALL LIGHT WITHIN REACH OF THE PATIENT. WILL CONTINUE TO MONITOR AND REASSESS FOR ANY CHANGES.
[2021-11-10 20:00] VITALS: BP 111/78
[2021-11-10] MEDS: LEVOFLOXACIN 750 MG /D5W 150ML 750 MG in PREMIX 1 EA IV SCH (20:52)
[2021-11-10] MEDS: OLANZAPINE 10 MG TABLET PO SCH ×2 (22:08→22:28)
[2021-11-11] VITALS: BP 111/77
[2021-11-11] MEDS: IPRATROPIUM NEB FS 0.5 MG/2.5 ML AMPUL.NEB NEB SCH ×4 (01:14→19:26)
[2021-11-11] MEDS: ALBUTEROL FS 2.5 MG/3 ML VIAL.NEB NEB SCH ×4 (01:14→19:26)
[2021-11-11 04:00] VITALS: BP 120/83
[2021-11-11 06:55] LABS: BASOPHILS % (AUTO) 0.1 % (0.0-2.0); HEMATOCRIT 34 % (39-51); HEMOGLOBIN 11.1 g/dL (13.5-17.5); LYMPHOCYTES # (AUTO) 0.1 K/uL (0.8-4.8); LYMPHOCYTES % (AUTO) 0.9 % (20.0-44.0); MEAN CORPUSCULAR HGB CONC 33 g/dl (31.0-36.0); MEAN CORPUSCULAR VOLUME 89 fL (80-96); MONOCYTES # (AUTO) 0.3 K/uL (0.1-1.30); MONOCYTES % (AUTO) 2.6 % (2.0-12.0); NEUTROPHILS # (AUTO) 9.4 K/uL (1.8-8.9); NEUTROPHILS % (AUTO) 96.4 % (43.0-81.0); PLATELET COUNT (AUTO) 337 K/uL (150-450); RED BLOOD CELL COUNT(AUTO) 3.84 MIL/uL (4.5-6.0); WHITE BLOOD COUNT (AUTO) 9.7 K/uL (4.3-11.0)
[2021-11-11 07:20] LABS: CALCIUM, SERUM 8.9 mg/dL (8.5-10.1); CREATININE 0.6 mg/dL (0.6-1.3); MAGNESIUM 1.8 mg/dL (1.8-2.4); PHOSPHORUS 3.5 mg/dL (2.5-4.9); POTASSIUM 3.5 mmol/L (3.5-5.1)
--- NOTE | 2021-11-11 07:20 | NUR ---
ms rn received on bed, awake,alert,oriented x3-4,patient on o2 mask at 12 liters, saturating 92%,denies pain at this time, will monitor patient.
[2021-11-11 08:00] VITALS: BP 146/88
--- NOTE | 2021-11-11 08:24 | NUR ---
WOUND CARE CONSULT: PT PRESENTS WITH RT 3RD TOE NAIL AVULSION, PRESENT ON ADMISSION. RECOMMEND DPM CONSULT. CALLED TO DR BREEN. RECOMMENDATIONS MADE FOR SKN PROTECTION. DISCUSSED WITH NURSING STAFF. IN AGREEMENT WITH PLAN OF CARE. PT IS CONTINENT AT THIS TIME. CURRENT GIA SCORE IS 16.
[2021-11-11] MEDS: methylPREDNISolone SOD SUCC 125 MG/2ML VIAL IV SCH ×3 (08:38→23:26)
[2021-11-11] MEDS: risperiDONE 0.25 MG TABLET PO SCH ×2 (08:38→17:10)
[2021-11-11] MEDS: CHOLECALCIFEROL 1,000 UNIT TABLET (VIT D3) PO SCH (08:38)
[2021-11-11] MEDS: acetaZOLAMIDE 250 MG TABLET PO SCH (08:38)
[2021-11-11] MEDS: ASCORBIC ACID 500 MG TABLET PO SCH (08:39)
[2021-11-11] MEDS: CALCIUM CARBONATE 500 MG TAB.CHEW PO SCH (08:40)
[2021-11-11] MEDS: ZINC SULFATE 220 MG CAPSULE PO SCH (08:40)
[2021-11-11] MEDS: METOPROLOL TARTRATE 50 MG TABLET PO SCH ×2 (08:40→17:13)
[2021-11-11] MEDS: DILTIAZEM HCL 30 MG TABLET PO SCH ×3 (08:41→17:11)
[2021-11-11] MEDS: MULTIVIT W/MINERALS 1 TAB TABLET PO SCH (08:41)
[2021-11-11] MEDS: PROSOURCE / PROSTAT (PYXIS) 30 ML UDC PO SCH ×2 (08:46→17:10)
--- NOTE | 2021-11-11 08:50 | NUR ---
ms haro breakfast served,due meds given,tolerated well.
[2021-11-11] MEDS: APIXABAN 5 MG TABLET PO SCH (08:57)
--- NOTE | 2021-11-11 09:20 | NUR ---
ms rn was seen by pt,tolerating well.
--- NOTE | 2021-11-11 10:58 | NUR ---
ms rn 'sleeping at this time.
[2021-11-11 12:00] VITALS: BP 108/73
--- NOTE | 2021-11-11 12:00 | NUR ---
ms rn positive left lower cvt, aware, changed eliquis to lovenox.
[2021-11-11 13:23] LABS: THYROID STIMULATING HORMONE 1.618 uIU/mL (0.358-3.74)
[2021-11-11 16:00] VITALS: BP 108/77
--- NOTE | 2021-11-11 17:57 | NUR ---
ms rn on bed, all needs attended,no distress noted.
--- NOTE | 2021-11-11 19:30 | NUR ---
RN OPENING NOTE RECEIVED PATIENT SITTING IN BED AWAKE, A/O X3, PT IS ABLE TO VERBALIZE NEEDS. ON VENTURI MASK, 10L. NO S/S OF ACUTE DISTRESS NOTED AT THIS TIME. IV SITE IN LEFT HAND AND BERNA MIDLINE, BOTH PATENT AND INTACT, FLUSHES WELL. ALL SAFETY MEASURES IN PLACE. BED LOCKED AND IN LOWEST POSITION, S/R OF BED UPX2 UP, CALL LIGHT WITHIN REACH. WILL CONTINUE TO MONITOR.
[2021-11-11 20:00] VITALS: BP 105/69
[2021-11-11] MEDS: LEVOFLOXACIN (250MG) 250 MG TABLET PO SCH (20:04)
[2021-11-11] MEDS: ENOXAPARIN SODIUM 80 MG/0.8 ML DISP.SYRIN SQ SCH (20:11)
[2021-11-12] VITALS: BP 116/77
[2021-11-12] MEDS: IPRATROPIUM NEB FS 0.5 MG/2.5 ML AMPUL.NEB NEB SCH ×4 (01:17→19:54)
[2021-11-12] MEDS: ALBUTEROL FS 2.5 MG/3 ML VIAL.NEB NEB SCH ×4 (01:17→19:54)
[2021-11-12 04:00] VITALS: BP 126/79
--- NOTE | 2021-11-12 06:19 | NUR ---
RN NOTE PT IS NPO UNTIL THIS 8AM FOR HIS CT SCAN OF CHEST, ABDOMEN AND PELVIS WITH CONTRAST. WILL WAIT FOR PT TO WAKE UP TO SECURE CONSENT, IF NOT, WILL ENDORSE TO AM SHIFT TO OBTAIN CONSENT.
[2021-11-12 07:20] LABS: BASOPHILS % (AUTO) 0.4 % (0.0-2.0); EOSINOPHILS % (AUTO) 0.1 % (0.0-6.0); HEMATOCRIT 35 % (39-51); HEMOGLOBIN 11.6 g/dL (13.5-17.5); LYMPHOCYTES # (AUTO) 0.1 K/uL (0.8-4.8); MEAN CORPUSCULAR HGB CONC 33 g/dl (31.0-36.0); MEAN CORPUSCULAR VOLUME 88 fL (80-96); MONOCYTES # (AUTO) 0.4 K/uL (0.1-1.30); NEUTROPHILS # (AUTO) 8.6 K/uL (1.8-8.9); NEUTROPHILS % (AUTO) 94.5 % (43.0-81.0); PLATELET COUNT (AUTO) 312 K/uL (150-450); RED BLOOD CELL COUNT(AUTO) 3.95 MIL/uL (4.5-6.0); WHITE BLOOD COUNT (AUTO) 9.1 K/uL (4.3-11.0)
--- NOTE | 2021-11-12 07:28 | NUR ---
RN CLOSING NOTE PATIENT REMAINED STABLE THROUGHOUT THE SHIFT. PT IN BED, AWAKE, A/0 X 3-4. ON VENTURI MASK, 10L. TOLERATING WELL. NO SOB OR ACUTE DISTRESS NOTED. TELE MONITORING SHOWS SR WITH HR OF 90s. IV ACCESS IN BERNA MIDLINE AND LEFT HAND WITH 20G. BOTH INTACT AND PATENT. NO INFILTRATION NOTED. PT IS NPO. WITH ORDER OF CT SCAN OF THE CHEST, ABDOMEN AND PELVIS WITH CONTRAST SCHEDULED AT 0800, 11/12. CONSENT SECURED AND GIVEN TO AM SHIFT NURSE. ALL DUE MEDS GIVEN. ALL NEEDS ATTENDED TO. TURNED AND REPOSITIONED. ALL SAFETY MEASURES IMPLEMENTED. BED LOCKED IN LOWEST POSITION, BED ALARM ON. CALL LIGHT WITHIN REACH. WILL ENDORSE TO AM SHIFT NURSE FOR NIA.
[2021-11-12] MEDS: PANTOPRAZOLE 40 MG TABLET.DR PO SCH (07:30)
--- NOTE | 2021-11-12 07:30 | NUR ---
PEOPLESOFT HRMS DEVELOPER OPENING NOTE RECEIVED PATIENT SITTING IN BED AWAKE, A/O X3, PT IS ABLE TO VERBALIZE NEEDS. ON VENTURI MASK, 10L. NO S/S OF ACUTE DISTRESS NOTED AT THIS TIME. IV SITE IN LEFT HAND AND BERNA MIDLINE, BOTH PATENT AND INTACT, FLUSHES WELL. ALL SAFETY MEASURES IN PLACE. BED LOCKED AND IN LOWEST POSITION, S/R OF BED UPX2 UP, CALL LIGHT WITHIN REACH. WILL CONTINUE TO MONITOR. NPO FOR NOW FOR CT SCAN CHEST/ABDOMEN/PELVIS.
[2021-11-12 08:00] VITALS: BP 146/92
[2021-11-12 08:53] LABS: CALCIUM, SERUM 8.7 mg/dL (8.5-10.1); CREATININE 0.6 mg/dL (0.6-1.3); MAGNESIUM 1.8 mg/dL (1.8-2.4); PHOSPHORUS 3.3 mg/dL (2.5-4.9); POTASSIUM 4.1 mmol/L (3.5-5.1)
--- NOTE | 2021-11-12 09:30 | NUR ---
RN NOTES DUE MEDS GIVEN
[2021-11-12] MEDS: DILTIAZEM HCL 30 MG TABLET PO SCH ×3 (09:56→17:17)
[2021-11-12] MEDS: CALCIUM CARBONATE 500 MG TAB.CHEW PO SCH (09:56)
[2021-11-12] MEDS: METOPROLOL TARTRATE 50 MG TABLET PO SCH ×2 (09:57→17:16)
[2021-11-12] MEDS: risperiDONE 0.25 MG TABLET PO SCH ×2 (09:57→17:16)
[2021-11-12] MEDS: ZINC SULFATE 220 MG CAPSULE PO SCH (09:57)
[2021-11-12] MEDS: CHOLECALCIFEROL 1,000 UNIT TABLET (VIT D3) PO SCH (09:57)
[2021-11-12] MEDS: MULTIVIT W/MINERALS 1 TAB TABLET PO SCH (09:58)
[2021-11-12] MEDS: acetaZOLAMIDE 250 MG TABLET PO SCH (09:58)
[2021-11-12] MEDS: ASCORBIC ACID 500 MG TABLET PO SCH (09:58)
[2021-11-12] MEDS: PROSOURCE / PROSTAT (PYXIS) 30 ML UDC PO SCH ×2 (09:58→17:17)
[2021-11-12] MEDS: ENOXAPARIN SODIUM 80 MG/0.8 ML DISP.SYRIN SQ SCH ×2 (09:59→20:50)
[2021-11-12] MEDS ORDERED: IOHEXOL-300 100 ML VIAL IV ONE (10:38)
[2021-11-12] MEDS ORDERED: IV NS 0.9% 250 ML IV ONE (10:38)
[2021-11-12 12:00] VITALS: BP 133/90
[2021-11-12 16:00] VITALS: BP 101/62
[2021-11-12] MEDS: methylPREDNISolone SOD SUCC 125 MG/2ML VIAL IV SCH ×3 (17:15→23:41)
[2021-11-12] MEDS: SODIUM CHLORIDE 1000 MG TABLET PO SCH (17:53)
--- NOTE | 2021-11-12 19:32 | NUR ---
RN NOTES RECEIVED PT FOR CONTINUITY OF CARE. PATIENT A/OX3-4 IN NO S/SX OF ACUTE DISTRESS AT THIS TIME. WILL ENSURE SAFETY MEASURES WITHIN THE SHIFT. PATIENT BED ALARM IS ON. HEAD OF BED ELEVATED. BED IS LOCKED, IN LOWEST POSITION AND SIDE RAILS UP. CALL LIGHT WITHIN REACH OF THE PATIENT. APPLICABLE ISOLATION PRECAUTIONS IN PLACE. WILL CONTINUE TO MONITOR AND REASSESS FOR ANY CHANGES AND WILL CARRY OUT ANY ONGOING AND ACTIVE MD ORDER.
--- NOTE | 2021-11-12 19:43 | NUR ---
RN CLOSING NOTE PATIENT RESTING IN BED, AWAKE, A/0 X 3-4. ON VENTURI MASK, 10L. TOLERATING WELL. NO SOB OR ACUTE DISTRESS NOTED. SR WITH HR OF 80s. IV ACCESS IN BERNA MIDLINE AND LEFT HAND WITH 20G. BOTH INTACT AND PATENT. BOTH SITES CLEAR. ALL NEEDS ATTENDED AT THIS TIME. NO SIGNIFICANT CHANGE IN CONDITION. PM CARE DONE. ALL SAFETY MEASURES IN PLACE. BED LOCKED IN LOWEST POSITION, BED ALARM ON. CALL LIGHT WITHIN REACH. WILL ENDORSE TO TO NEXT SHIFT FOR NIA.
[2021-11-12 20:00] VITALS: BP 104/73
[2021-11-12] MEDS: LEVOFLOXACIN (250MG) 250 MG TABLET PO SCH (20:50)
[2021-11-12] MEDS: OLANZAPINE 10 MG TABLET PO SCH (21:09)
[2021-11-13] MEDS: ALBUTEROL FS 2.5 MG/3 ML VIAL.NEB NEB SCH ×4 (01:35→20:04)
[2021-11-13] MEDS: IPRATROPIUM NEB FS 0.5 MG/2.5 ML AMPUL.NEB NEB SCH ×4 (01:35→20:04)
[2021-11-13 02:00] VITALS: BP 99/62
[2021-11-13 04:00] VITALS: BP 110/82
[2021-11-13 06:16] LABS: HEMATOCRIT 34 % (39-51); HEMOGLOBIN 11.5 g/dL (13.5-17.5); LYMPHOCYTES # (AUTO) 0.1 K/uL (0.8-4.8); LYMPHOCYTES % (AUTO) 0.9 % (20.0-44.0); MEAN CORPUSCULAR HGB CONC 34 g/dl (31.0-36.0); MEAN CORPUSCULAR VOLUME 88 fL (80-96); MONOCYTES # (AUTO) 0.4 K/uL (0.1-1.30); MONOCYTES % (AUTO) 5.5 % (2.0-12.0); NEUTROPHILS # (AUTO) 6.5 K/uL (1.8-8.9); NEUTROPHILS % (AUTO) 93.6 % (43.0-81.0); PLATELET COUNT (AUTO) 279 K/uL (150-450); RED BLOOD CELL COUNT(AUTO) 3.89 MIL/uL (4.5-6.0)
[2021-11-13 06:31] LABS: CALCIUM, SERUM 8.4 mg/dL (8.5-10.1); CREATININE 0.6 mg/dL (0.6-1.3); MAGNESIUM 1.8 mg/dL (1.8-2.4); PHOSPHORUS 3.2 mg/dL (2.5-4.9); POTASSIUM 3.5 mmol/L (3.5-5.1)
--- NOTE | 2021-11-13 06:32 | NUR ---
RN CLOSING NOTE: PATIENT REMAINS IN ROOM IN NO SIGNS OF RESPIRATORY DISTRESS. SAFETY MEASURES IMPLEMENTED, BED IN LOWEST POSITION, LOCKED, SIDE RAILS UP, CALL LIGHT WITHIN REACH. ALL NEEDS AND ORDERS ADDRESSED DURING THE SHIFT. IV ACCESS MAINTAINED INTACT, SECURED AND FLUSHING WELL. ALL DUE MEDS GIVEN ORDERED & SCHEDULED ; PATIENT TOLERATED WELL. PATIENT KEPT CLEAN AND COMFORTABLE WITHIN THE SHIFT. PATIENT ENDORSED TO INCOMING SHIFT RN WITH STABLE VITAL SIGN AND FOR CONTINUITY OF CARE.
--- NOTE | 2021-11-13 07:30 | NUR ---
RN OPENING NOTE PT RECEIVED IN BED WITH HOB HIGH FOWLERS. PT IS ON VENTURI MASK AT THIS TIME 28% TOLERATING WELL WITH NO SIGNS OF DISTGRESS O2 SAT 100% AND WILL TITRATE 02 DOWN DURING THIS SHIFT. PT IS A/OX 3-[address] AT THIS TIME 101BPM. IV ACCESS R UA MIDLINE AND R HAND NO FLUIDS INFUSING. BED IS LOCKED IN LOWEST POSITION X2 BED RAILS UP, CALL LIGHT IS WITHIN REACH AND WILL CONTINUE TO MONITOR THIS SHIFT.
[2021-11-13 08:00] VITALS: BP 153/69
[2021-11-13] MEDS: methylPREDNISolone SOD SUCC 125 MG/2ML VIAL IV SCH ×3 (08:02→22:39)
[2021-11-13] MEDS: PANTOPRAZOLE 40 MG TABLET.DR PO SCH (08:03)
[2021-11-13] MEDS: PROSOURCE / PROSTAT (PYXIS) 30 ML UDC PO SCH ×2 (08:08→17:35)
[2021-11-13] MEDS: CALCIUM CARBONATE 500 MG TAB.CHEW PO SCH (08:08)
[2021-11-13] MEDS: ZINC SULFATE 220 MG CAPSULE PO SCH (08:09)
[2021-11-13] MEDS: risperiDONE 0.25 MG TABLET PO SCH ×2 (08:09→17:36)
[2021-11-13] MEDS: MULTIVIT W/MINERALS 1 TAB TABLET PO SCH (08:09)
[2021-11-13] MEDS: ASCORBIC ACID 500 MG TABLET PO SCH (08:09)
[2021-11-13] MEDS: SODIUM CHLORIDE 1000 MG TABLET PO SCH (08:10)
[2021-11-13] MEDS: CHOLECALCIFEROL 1,000 UNIT TABLET (VIT D3) PO SCH (08:10)
[2021-11-13] MEDS: DILTIAZEM HCL 30 MG TABLET PO SCH ×3 (08:39→17:35)
[2021-11-13] MEDS: METOPROLOL TARTRATE 50 MG TABLET PO SCH ×2 (08:40→17:36)
[2021-11-13] MEDS: ENOXAPARIN SODIUM 80 MG/0.8 ML DISP.SYRIN SQ SCH ×2 (08:46→20:25)
--- NOTE | 2021-11-13 10:56 | NUR ---
RN NOTE: O2 TITRATION PT IS ON 5L NC AT THIS TIME SAT 98% TOLERATING WELL WITH NO SIGNS OF LABORED BREATHING OR DISTRESS
[2021-11-13 12:00] VITALS: BP 111/81
--- NOTE | 2021-11-13 12:54 | NUR ---
RN NOTE: 02 TITRATION PT ON 3L VIA NC. WILL CONTINUE TO TITRATE TO MEET O2% GOAL OF 88 - 90%
--- NOTE | 2021-11-13 13:33 | NUR ---
RN NOTE: 02 TITRATION PT IS ON 3L O2 VIA VENTURI MASK SAT 90%. WILL CONTINUE TO MONITOR TO KEEP BETWEEN GOAL OF 88 - 90%.
[2021-11-13 16:00] VITALS: BP 119/79
--- NOTE | 2021-11-13 19:10 | NUR ---
RN CLOSING NOTE PT IS SITTING UP IN BED WITH HOB HIGH FOWLERS. PT IS ON NC 4L AT THIS TIME SAT 89% TOLERATING WELL. PT IS A/OX 3-[address] AT THIS TIME 78PM. IV ACCESS R UA MIDLINE AND R HAND NO FLUIDS INFUSING. BED IS LOCKED IN LOWEST POSITION X2 BED RAILS UP, CALL LIGHT IS WITHIN REACH AND WILL ENDORSE TO INTEGRATION AIDE NURSE FOR NIA.
[2021-11-13 20:00] VITALS: BP 123/81
--- NOTE | 2021-11-13 20:14 | NUR ---
RN NOTE PATIENT IN BED, ALERT AND ORIENTED X3. ABLE TO MAKE NEEDS KNOWN. ON O2 3L VIA NASAL CANNULA, O2 SAT 89%. DENIES ANY PAIN AT THIS TIME. IV ACCESS ON BERNA MIDLINE AND LEFT HAND PATENT AND INTACT. BED LOCKED AND IN LOWEST POSITION. CALL LIGHT WITHIN REACH. ALL NEEDS ANTICIPATED. Addendum: 11/14/21 at 0027 by LUL MONTOYA RN PT ON O2 4L VIA NASAL CANNULA.
[2021-11-13] MEDS: LEVOFLOXACIN (250MG) 250 MG TABLET PO SCH (20:26)
[2021-11-13] MEDS: OLANZAPINE 10 MG TABLET PO SCH (22:38)
[2021-11-14] VITALS: BP 126/83
[2021-11-14] MEDS: ALBUTEROL FS 2.5 MG/3 ML VIAL.NEB NEB SCH ×4 (01:03→19:40)
[2021-11-14] MEDS: IPRATROPIUM NEB FS 0.5 MG/2.5 ML AMPUL.NEB NEB SCH ×4 (01:03→19:40)
[2021-11-14 04:00] VITALS: BP 136/92
--- NOTE | 2021-11-14 06:55 | NUR ---
RN NOTE PATIENT RESTING IN BED. TITRATED O2 TO 3L VIA NASAL CANNULA, O2 SAT 90%. KEPT CLEAN AND DRY. IV ACCESS ON BERNA MIDLINE AND LEFT HAND PATENT AND INTACT. ALL NEEDS ATTENDED PROMPTLY. BED LOCKED AND IN LOWEST POSITION. CALL LIGHT WITHIN REACH. WILL ENDORSE TO AM SHIFT.
[2021-11-14 07:28] LABS: EOSINOPHILS % (AUTO) 0.1 % (0.0-6.0); HEMATOCRIT 36 % (39-51); LYMPHOCYTES # (AUTO) 0.1 K/uL (0.8-4.8); LYMPHOCYTES % (AUTO) 1.1 % (20.0-44.0); MEAN CORPUSCULAR HGB CONC 33 g/dl (31.0-36.0); MEAN CORPUSCULAR VOLUME 87 fL (80-96); MONOCYTES # (AUTO) 0.3 K/uL (0.1-1.30); MONOCYTES % (AUTO) 4.2 % (2.0-12.0); NEUTROPHILS # (AUTO) 7.4 K/uL (1.8-8.9); NEUTROPHILS % (AUTO) 94.6 % (43.0-81.0); PLATELET COUNT (AUTO) 300 K/uL (150-450); RED BLOOD CELL COUNT(AUTO) 4.13 MIL/uL (4.5-6.0); WHITE BLOOD COUNT (AUTO) 7.8 K/uL (4.3-11.0)
--- NOTE | 2021-11-14 07:36 | NUR ---
RN OPENING NOTE PATIENT RECEIVED IN BED, RESTING, A&OX4. PATIENT ON 3L NC WITH NO SIGNS OF LABORED BREATHING AT THIS TIME. LEFT HAND IV IN PLACE, RIGHT UA MIDLINE IN PLACE. NO SIGNS OF ACUTE DISTRESS NOTED AT THIS TIME. BED LOCKED AND IN LOWEST POSITION, CALL LIGHT WITHIN REACH, 2 SIDE RAILS UP. WILL CONTINUE TO MONITOR.
[2021-11-14 07:49] LABS: CALCIUM, SERUM 8.6 mg/dL (8.5-10.1); CREATININE 0.6 mg/dL (0.6-1.3); MAGNESIUM 1.8 mg/dL (1.8-2.4); PHOSPHORUS 2.6 mg/dL (2.5-4.9); POTASSIUM 4.4 mmol/L (3.5-5.1)
[2021-11-14 08:00] VITALS: BP 139/98
[2021-11-14] MEDS: methylPREDNISolone SOD SUCC 125 MG/2ML VIAL IV SCH ×3 (08:24→23:35)
[2021-11-14] MEDS: PANTOPRAZOLE 40 MG TABLET.DR PO SCH (08:24)
[2021-11-14] MEDS: ZINC SULFATE 220 MG CAPSULE PO SCH (08:50)
[2021-11-14] MEDS: SODIUM CHLORIDE 1000 MG TABLET PO SCH ×2 (08:50→16:37)
[2021-11-14] MEDS: CHOLECALCIFEROL 1,000 UNIT TABLET (VIT D3) PO SCH (08:50)
[2021-11-14] MEDS: CALCIUM CARBONATE 500 MG TAB.CHEW PO SCH (08:50)
[2021-11-14] MEDS: ASCORBIC ACID 500 MG TABLET PO SCH (08:51)
[2021-11-14] MEDS: MULTIVIT W/MINERALS 1 TAB TABLET PO SCH (08:51)
[2021-11-14] MEDS: risperiDONE 0.25 MG TABLET PO SCH ×2 (08:51→16:20)
[2021-11-14] MEDS: METOPROLOL TARTRATE 50 MG TABLET PO SCH ×2 (08:52→16:21)
[2021-11-14] MEDS: DILTIAZEM HCL 30 MG TABLET PO SCH ×3 (08:52→16:21)
[2021-11-14] MEDS: ENOXAPARIN SODIUM 80 MG/0.8 ML DISP.SYRIN SQ SCH (08:55)
[2021-11-14] MEDS: PROSOURCE / PROSTAT (PYXIS) 30 ML UDC PO SCH ×2 (08:59→16:20)
[2021-11-14 12:00] VITALS: BP 119/91
[2021-11-14 12:00] LABS: LYMPHOCYTES % (MANUAL) 2 % (16-48); MONOCYTES % (MANUAL) 8 % (0-11.0); NEUTROPHILS % (MANUAL) 90 (42-76)
[2021-11-14 16:00] VITALS: BP 113/75
[2021-11-14] MEDS: RIVAROXABAN 15 MG TABLET PO SCH (17:33)
--- NOTE | 2021-11-14 18:31 | NUR ---
RN NOTE PATIENT DISCHARGED ORDERED. REPORT GIVEN TO LIANET PAYTON AT [facility] FOR NIA. LEFT HAND IV AND RIGHT UA MIDLINE REMOVED. PATIENT MEDICALLY STABLE ON 3L O2 NC.
--- NOTE | 2021-11-14 19:15 | NUR ---
RN NOTE PATIENT SENT BACK FROM [facility] DUE TO O2 SAT @ 85% ON O2 3L VIA NASAL CANNULA. NOTED WITH SOB. TRANSFERRED SAFELY TO BED, ADMINISTERED O2 4L VIA NC, O2 SATURATING AT 91%. RT AND CHARGE NURSE AT BEDSIDE. VITAL SIGNS STABLE TEMP 98.1, RR 28, O2 SAT 91%, BP 125/76, HR 78. 2045- IV ACCESS OBTAINED ON LEFT FOREARM #22 WITH GOOD BLOOD RETURN BY SHERRY COLEMAN RN. KEPT PATIENT COMFORTABLE, CALL LIGHT WITHIN REACH.
[2021-11-14 20:00] VITALS: BP 125/76
[2021-11-14] MEDS: LEVOFLOXACIN (250MG) 250 MG TABLET PO SCH (20:55)
[2021-11-14] MEDS: OLANZAPINE 10 MG TABLET PO SCH (21:05)
[2021-11-15] VITALS (7 sets, daily range): BP systolic 118–191; BP diastolic 73–115
[2021-11-15] MEDS: ALBUTEROL FS 2.5 MG/3 ML VIAL.NEB NEB SCH ×4 (01:34→20:31)
[2021-11-15] MEDS: IPRATROPIUM NEB FS 0.5 MG/2.5 ML AMPUL.NEB NEB SCH ×4 (01:34→20:31)
--- NOTE | 2021-11-15 07:31 | NUR ---
RN OPENING NOTES PATIENT RECEIVED IN BED, RESTING, A&OX4. PATIENT ON 4L NC WITH NO SIGNS OF LABORED BREATHING NOTED AT THIS TIME. LEFT FOREARM IV IN PLACE. NO SIGNS OF ACUTE DISTRESS NOTED AT THIS TIME. BED LOCKED AND IN LOWEST POSITION, CALL LIGHT WITHIN REACH, 2 SIDE RAILS UP. WILL CONTINUE TO MONITOR.
--- NOTE | 2021-11-15 07:48 | NUR ---
RN NOTE PATIENT REMAINED STABLE THROUGHOUT SHIFT. NO SIGNIFICANT CHANGES. CONTINUES ON 4L VIA NASAL CANNULA. ALL NEEDS ATTENDED PROMPTLY. BED LOCKED AND IN LOWEST POSITION. CALL LIGHT WITHIN REACH. ENDORSED TO AM SHIFT.
[2021-11-15] MEDS: methylPREDNISolone SOD SUCC 125 MG/2ML VIAL IV SCH ×3 (08:13→22:46)
[2021-11-15] MEDS: ZINC SULFATE 220 MG CAPSULE PO SCH (08:13)
[2021-11-15] MEDS: MULTIVIT W/MINERALS 1 TAB TABLET PO SCH (08:13)
[2021-11-15] MEDS: CHOLECALCIFEROL 1,000 UNIT TABLET (VIT D3) PO SCH (08:13)
[2021-11-15] MEDS: DILTIAZEM HCL 30 MG TABLET PO SCH ×3 (08:13→16:43)
[2021-11-15] MEDS: CALCIUM CARBONATE 500 MG TAB.CHEW PO SCH (08:13)
[2021-11-15] MEDS: PANTOPRAZOLE 40 MG TABLET.DR PO SCH (08:13)
[2021-11-15] MEDS: SODIUM CHLORIDE 1000 MG TABLET PO SCH ×3 (08:14→16:43)
[2021-11-15] MEDS: METOPROLOL TARTRATE 50 MG TABLET PO SCH ×2 (08:14→16:45)
[2021-11-15] MEDS: ASCORBIC ACID 500 MG TABLET PO SCH (08:14)
[2021-11-15] MEDS: risperiDONE 0.25 MG TABLET PO SCH ×2 (08:14→16:43)
[2021-11-15] MEDS: RIVAROXABAN 15 MG TABLET PO SCH ×2 (08:20→16:44)
[2021-11-15] MEDS: PROSOURCE / PROSTAT (PYXIS) 30 ML UDC PO SCH ×2 (08:24→16:42)
--- NOTE | 2021-11-15 08:43 | NUR ---
RN NOTE BP 191/115, HR 115 ON TELE MONITOR. AM SCHEDULED MEDICATION GIVEN INCLUDING DILTIAZEM 60MG AND PROPANOLOL 50MG. DR. ENGEL NOTIFIED. WILL CONTINUE TO MONITOR.
[2021-11-15] MEDS ORDERED: CLONIDINE HCL 0.1 MG TABLET PO PRN (09:00)
--- NOTE | 2021-11-15 18:56 | NUR ---
RN CLOSING NOTES PATIENT REMAINS IN BED, RESTING, A&OX4. PATIENT ON 3L NC WITH NO SIGNS OF LABORED BREATHING NOTED AT THIS TIME. LEFT FOREARM IV IN PLACE. NO SIGNS OF ACUTE DISTRESS NOTED AT THIS TIME. BED LOCKED AND IN LOWEST POSITION, CALL LIGHT WITHIN REACH, 2 SIDE RAILS UP. WILL ENDORSE TO PROBATION MANAGER NURSE.
--- NOTE | 2021-11-15 19:15 | NUR ---
RN OPENING NOTES RECEIVED PATIENT ON BED, AWAKE, A/O X 4, VERBALLY RESPONSIVE. ON NASAL CANULA AT 3LPM SATING AT 92%%. RESPIRATORY EVEN AND UNLABORED, NO SOB NOTED, NO S/S OF DISTRESS NOTED. AFEBRILE. NOTED WITH LEFT FOREARM ARM PERIPHERAL LINE, INTACT, INPLACED FLUSH WITH NS, NO S/S OF INFILTRATION AT SITE. ON FLUID RESTRICTION AT 1200ML PER DAY. BED ON LOWEST POSITION, LOCKED, BED ALARM ARMED. CONTINUE TO MONITOR
[2021-11-15] MEDS: LEVOFLOXACIN (250MG) 250 MG TABLET PO SCH (20:28)
[2021-11-15] MEDS: OLANZAPINE 10 MG TABLET PO SCH (22:45)
[2021-11-16] VITALS: BP 136/78
[2021-11-16] MEDS: IPRATROPIUM NEB FS 0.5 MG/2.5 ML AMPUL.NEB NEB SCH ×3 (02:19→12:58)
[2021-11-16] MEDS: ALBUTEROL FS 2.5 MG/3 ML VIAL.NEB NEB SCH ×3 (02:19→12:58)
[2021-11-16 04:00] VITALS: BP 127/61
--- NOTE | 2021-11-16 06:57 | NUR ---
RN NOTES PATIENT REMAIN STABLE THROUGH OUT THE SHIFT. RESPIRATORY EVEN AND UNLABORED, NO SOB NOTED, NO S/S OF DISTRESS NOTED. AFEBRILE. ON FLUID RESTRICTION AT 1200ML PER DAY. ALL DUE MEDS GIVEN ORDERED. SAFETY MEASURE PROVIDED. BED ON LOWEST POSITION, LOCKED, BED ALARM ARMED. CONTINUE TO MONITOR
[2021-11-16 07:17] LABS: EOSINOPHILS % (AUTO) 0.1 % (0.0-6.0); HEMATOCRIT 37 % (39-51); HEMOGLOBIN 12.3 g/dL (13.5-17.5); LYMPHOCYTES % (AUTO) 0.4 % (20.0-44.0); MEAN CORPUSCULAR HGB CONC 34 g/dl (31.0-36.0); MEAN CORPUSCULAR VOLUME 88 fL (80-96); MONOCYTES # (AUTO) 0.3 K/uL (0.1-1.30); NEUTROPHILS # (AUTO) 9.7 K/uL (1.8-8.9); NEUTROPHILS % (AUTO) 96.5 % (43.0-81.0); PLATELET COUNT (AUTO) 242 K/uL (150-450); RED BLOOD CELL COUNT(AUTO) 4.16 MIL/uL (4.5-6.0); WHITE BLOOD COUNT (AUTO) 10.1 K/uL (4.3-11.0)
--- NOTE | 2021-11-16 07:32 | NUR ---
RN OPENING NOTES PATIENT RECEIVED IN BED, RESTING, A&OX4. PATIENT ON 3L NC WITH SOME SIGNS OF LABORED BREATHING NOTED AT THIS TIME, O2 SAT 89% ON BEDSIDE MONITORING, HOB ELEVATED, RELAXATION TECHNIQUES USED. LEFT FOREARM IV IN PLACE. BED LOCKED AND IN LOWEST POSITION, CALL LIGHT WITHIN REACH, 2 SIDE RAILS UP. WILL CONTINUE TO MONITOR.
[2021-11-16 07:35] LABS: ALBUMIN 2.3 g/dL (3.4-5.0); CALCIUM, SERUM 8.3 mg/dL (8.5-10.1); CREATININE 0.5 mg/dL (0.6-1.3); PHOSPHORUS 2.8 mg/dL (2.5-4.9)
[2021-11-16 08:00] VITALS: BP 141/103
[2021-11-16] MEDS: methylPREDNISolone SOD SUCC 125 MG/2ML VIAL IV SCH (08:12)
[2021-11-16] MEDS: PANTOPRAZOLE 40 MG TABLET.DR PO SCH (08:13)
[2021-11-16] MEDS: DILTIAZEM HCL 30 MG TABLET PO SCH ×2 (08:13→12:29)
[2021-11-16] MEDS: CHOLECALCIFEROL 1,000 UNIT TABLET (VIT D3) PO SCH (08:13)
[2021-11-16] MEDS: MULTIVIT W/MINERALS 1 TAB TABLET PO SCH (08:13)
[2021-11-16] MEDS: CALCIUM CARBONATE 500 MG TAB.CHEW PO SCH (08:13)
[2021-11-16] MEDS: METOPROLOL TARTRATE 50 MG TABLET PO SCH (08:14)
[2021-11-16] MEDS: SODIUM CHLORIDE 1000 MG TABLET PO SCH ×2 (08:14→12:28)
[2021-11-16] MEDS: risperiDONE 0.25 MG TABLET PO SCH (08:14)
[2021-11-16] MEDS: ASCORBIC ACID 500 MG TABLET PO SCH (08:14)
[2021-11-16] MEDS: ZINC SULFATE 220 MG CAPSULE PO SCH (08:14)
[2021-11-16] MEDS: RIVAROXABAN 15 MG TABLET PO SCH (08:15)
[2021-11-16] MEDS: PROSOURCE / PROSTAT (PYXIS) 30 ML UDC PO SCH (08:20)
[2021-11-16 09:04] LABS: BAND % (MANUAL) 2 % (0.0-5.0); LYMPHOCYTES % (MANUAL) 2 % (16-48); MONOCYTES % (MANUAL) 2 % (0-11.0); NEUTROPHILS % (MANUAL) 94 (42-76)
[2021-11-16] MEDS ORDERED: PRED50TA PO (09:43)
[2021-11-16 12:00] VITALS: BP 129/88
[2021-11-16 12:29] VITALS: BP 129/88
--- NOTE | 2021-11-16 13:00 | NUR ---
RECEIVED PATIENT ON 3LNC SATURATIONS AT 90-93%. Q6 HHN ALBUTEROL AND ATROVENT TX TOLERATING WELL WITH NO ADVERSE REACTION NOTED.
--- NOTE | 2021-11-16 14:28 | NUR ---
RN NOTE PATIENT DISCHARGED ORDERED. IV REMOVED. PT STABLE ON 3L O2 NC SAT 94%. REPORT GIVEN TO OLY PAYTON AT [facility].
== END 2021-11-16 14:04 | DRG 189 ==
LOC: ER 15:22 → TELE1 17:44 → TELE-TD 19:09
PROVIDERS: ADMIT Nurse Practitioner Family; ATTEND Nurse Practitioner Family
PROC: 05H933Z Insertion of Infusion Device into Right Brachial Vein, Percutaneous Approach (ICD-10-PCS; principal; 2021-11-09)
DX: J96.21 Acute and chronic respiratory failure with hypoxia (principal); J44.1 Chronic obstructive pulmonary disease with (acute) exacerbation; I50.32 Chronic diastolic (congestive) heart failure; E22.2 Syndrome of inappropriate secretion of antidiuretic hormone; D68.59 Other primary thrombophilia; I82.412 Acute embolism and thrombosis of left femoral vein; C34.90 Malignant neoplasm of unspecified part of unspecified bronchus or lung; J98.11 Atelectasis; J44.0 Chronic obstructive pulmonary disease with (acute) lower respiratory infection; J96.22 Acute and chronic respiratory failure with hypercapnia; I11.0 Hypertensive heart disease with heart failure; Z20.822 Contact with and (suspected) exposure to COVID-19; I48.91 Unspecified atrial fibrillation; K21.9 Gastro-esophageal reflux disease without esophagitis; Z79.51 Long term (current) use of inhaled steroids; Z79.01 Long term (current) use of anticoagulants; Z79.899 Other long term (current) drug therapy; D64.9 Anemia, unspecified; F20.9 Schizophrenia, unspecified; E83.52 Hypercalcemia; Z87.891 Personal history of nicotine dependence; Z92.3 Personal history of irradiation; M20.41 Other hammer toe(s) (acquired), right foot; M20.42 Other hammer toe(s) (acquired), left foot; L60.1 Onycholysis; D35.02 Benign neoplasm of left adrenal gland; E88.09 Other disorders of plasma-protein metabolism, not elsewhere classified; J20.9 Acute bronchitis, unspecified
CPT/HCPCS: 36415; 36600; 70450-TC; 71045-TC; 71260-TC; 80048-TC; 80061-TC; 82040-TC; 82378; 82607-TC; 82728-TC; 83540-TC; 83735-TC; 83880; 84100-TC; 84443-TC; 85025-TC; 87040-TC; 87081-TC; 93970-TC; 94640-TC; 94760-TC; 94799-TC; 97116-TC; 97530-TC; A4216; C9803; G0378; J1650; J1956; J2930; J3475; J7040; J7042; J7050; Q9967

== ENCOUNTER 2021-11-26 01:40 | Inpatient (IN) | payer MEDICARE, OTHER ==
[2021-11-26] VITALS (15 sets, daily range): BP systolic 92–142; BP diastolic 42–80
[~2021-11-26] VITALS: Ht 175.3 cm; Wt 83.9 kg
[~2021-11-26 01:40] MED LIST changes: -ALBU1.25 NEB; +ALBU2.5V38 IH; -APIX5TAB PO; +ASCO-352 PO; -ASCO500C17 PO; -DILT180C66 PO; +DILT90TA2 PO; +IPRA0.2S9 IH; -IPRA0.2S9 NEB; -LEVO750T46 PO; -METH4TAB17 PO; +PRED50TA PO; +RISP0.2515 PO; -RISP0.5T5 PO
--- NOTE | 2021-11-26 02:05 | NUR ---
RT NOTE Late Entry ABG TAKEN AND CRITICAL RESULTS REPORTED TO MD. ABG results placed in Pt's chart. Will continue to monitor closely.
--- NOTE | 2021-11-26 02:16 | NUR ---
IV LINE ESTABLISHED AT L HAND 22G, BLOOD AND COVID ANTIGEN COLLECTED AND SENT TO LAB
[2021-11-26] MEDS ORDERED: SODIUM BICARBONATE SYR 50 MEQ/50 ML DISP.SYRIN ONE (02:18)
[2021-11-26 02:25] LABS: BASOPHILS # (AUTO) 0.2 K/uL (0.0-0.2); BASOPHILS % (AUTO) 1.5 % (0.0-2.0); EOSINOPHILS % (AUTO) 0.4 % (0.0-6.0); HEMATOCRIT 37 % (39-51); LYMPHOCYTES # (AUTO) 0.1 K/uL (0.8-4.8); MEAN CORPUSCULAR HGB CONC 33 g/dl (31.0-36.0); MEAN CORPUSCULAR VOLUME 90 fL (80-96); MONOCYTES # (AUTO) 0.3 K/uL (0.1-1.30); NEUTROPHILS # (AUTO) 9.9 K/uL (1.8-8.9); NEUTROPHILS % (AUTO) 94.1 % (43.0-81.0); PLATELET COUNT (AUTO) 207 K/uL (150-450); RED BLOOD CELL COUNT(AUTO) 4.09 MIL/uL (4.5-6.0); WHITE BLOOD COUNT (AUTO) 10.5 K/uL (4.3-11.0)
[2021-11-26] MEDS ORDERED: SODIUM BICARBONATE SYR 50 MEQ/50 ML DISP.SYRIN IV ONE (02:30)
--- NOTE | 2021-11-26 02:40 | NUR ---
RT NOTE Pt rec'd on NRB mask @ 15LPM. Pt showed altered mental status and lethargy. ABG taken and critical results given to MD. pt placed on bipap on noted settings per md orders. Alarms are set and audible. Dorisu bag @ bedside. Post bipap ABG to be taken within 1 hr. will continue to monitor closely Addendum: 11/26/21 at 0243 by DARWIN MYERS RT Amended: Links added.
[2021-11-26 02:49] LABS: ALANINE AMINOTRANSFERASE 48 U/L (12-78); ALBUMIN 2.1 g/dL (3.4-5.0); ALKALINE PHOSPHATASE 74 U/L (46-116); ASPARTATE AMINOTRANSFERASE 20 U/L (15-37); BILIRUBIN,DIRECT 0.1 mg/dL (0.0-0.2); BILIRUBIN,TOTAL 0.2 mg/dL (0.2-1.0); CALCIUM, SERUM 8.7 mg/dL (8.5-10.1); CHLORIDE 95 mmol/L (98-107); CREATININE 0.4 mg/dL (0.6-1.3); GLUCOSE 122 mg/dL (74-106); POTASSIUM 3.9 mmol/L (3.5-5.1); SODIUM SERUM 136 mmol/L (136-145); TOTAL PROTEIN, SERUM 5.7 g/dL (6.4-8.2); UREA NITROGEN, BLOOD 22 mg/dL (7-18)
[2021-11-26 03:06] LABS: CARBON DIOXIDE 43 mmol/L (21-32)
--- NOTE | 2021-11-26 03:07 | NUR ---
CRITICAL LAB: CO2 43, MD MADE AWARE
[2021-11-26] MEDS ORDERED: MORPHINE SULFATE INJ 2 MG/ML DISP.SYRIN IV PRN (04:00)
[2021-11-26] MEDS ORDERED: CEFTRIAXONE 1GM BAG (ER ONLY) 1 GM/50 ML PIGGYBACK IV ONE (04:00)
[2021-11-26] MEDS ORDERED: AZITHROMYCIN 500 MG in IV D5W 250 ML IV ONE (04:00)
[2021-11-26] MEDS ORDERED: MAGNESIUM HYDROXIDE 30 ML UDC PO PRN (04:00)
[2021-11-26] MEDS ORDERED: ACETAMINOPHEN 325 MG TABLET PO PRN (04:00)
[2021-11-26] MEDS ORDERED: MAG HYDROX/AL HYDROX/SIMETH 30 ML UDC PO PRN (04:00)
[2021-11-26] MEDS ORDERED: ONDANSETRON HCL/PF 4 MG/2 ML VIAL IVP PRN (04:00)
[2021-11-26] MEDS ORDERED: AZITHROMYCIN 500 MG VIAL ONE (04:02)
[2021-11-26] MEDS ORDERED: CEFTRIAXONE 1GM BAG (ER ONLY) 50 ML IV ONE (04:02)
[2021-11-26 04:13] LABS: ABG BASE EXCESS 17.9 mmol/L; ABG PCO2 115.8 mmHg (35.0-45.0); ABG PH 7.253 (7.350-7.450); ABG PO2 233.4 mmHg (75.0-100.0); COHb 0.3 % (0.5-1.5); MetHb 0.2 % (0.0-1.5); O2Hb 98.7 % (94.0-97.0); SITE, ABG Right Radial; VENT MODE, BG ST 22/5 RR24 100%
--- NOTE | 2021-11-26 07:15 | NUR ---
ASSESSED PT ON BED. ON BIPAP SETTING 25/5 80%, PT IS AAOX2, V/S STABLE, KEPT RESTED AND COMFORTABLE. AWAITING ICU ROOM FOR ADMISSION.
[2021-11-26] MEDS ORDERED: RIVA10TA PO (07:58)
--- NOTE | 2021-11-26 08:35 | NUR ---
REPORT GIVEN TO NURSE STODDARD FOR NIA
--- NOTE | 2021-11-26 09:10 | NUR ---
ADMISSION PT BROUGHT UP FROM ED VIA ED GURHARMONY ACCOMPANIED BY TATA. TATA FARRAR CALLED AT 0845 TO GIVE REPORT. PT WAS ON 15L O2 NRB AND WAS PROMPTLY PLACED ON BIPAP 25/5, RATE OF 25, 50% FIO2. PT IS A&OX1-2, ENGAGING MINIMALLY WITH ENVIRONMENT. SKIN PHOTOS TAKEN. PT CLEANED AND PROVIDED FRESH LINENS. L HAND 22G WAS INFILTRATED. IV REMOVED AND DRESSING APPLIED. MIDLINE ORDERED. PT PLACED ON THE MONITOR, VITAL SIGNS WNL. RN WILL START ADMISSION PROCESS SHORTLY. Addendum: 11/26/21 at 0956 by ARLYN KAPLAN RN JUST PRIOR TO SKIN DOCUMENTATION, CALLAWAY CATH WAS INSERTED.
[2021-11-26] MEDS: PANTOPRAZOLE 40 MG VIAL IV SCH (09:42)
[2021-11-26] MEDS: ALBUTEROL HALF STRENGTH 1.25 MG/3 ML VIAL.NEB NEB SCH ×4 (10:22→23:21)
[2021-11-26 10:24] LABS: ABG BASE EXCESS 18.7 mmol/L; ABG PCO2 91.1 mmHg (35.0-45.0); ABG PH 7.347 (7.350-7.450); ABG PO2 71.5 mmHg (75.0-100.0); COHb 0.1 % (0.5-1.5); MetHb 0.3 % (0.0-1.5); SITE, ABG Right Radial
--- NOTE | 2021-11-26 10:30 | NUR ---
pt keeps removing bipap. rn and aware. per Dr headley off bipap. abg in afternoon. bipap 15/ rr 12 40fio2 for noc. bipap
[2021-11-26] MEDS: methylPREDNISolone SOD SUCC 125 MG/2ML VIAL IV SCH ×2 (11:04→21:07)
[2021-11-26] MEDS: IPRATROPIUM NEB FS 0.5 MG/2.5 ML AMPUL.NEB NEB SCH ×4 (11:34→23:21)
[2021-11-26 12:39] LABS: ABG BASE EXCESS 11.8 mmol/L; ABG OXYGEN SATURATION 90.7 % (92.0-98.5); ABG PCO2 70.3 mmHg (35.0-45.0); ABG PH 7.371 (7.350-7.450); ABG PO2 63.1 mmHg (75.0-100.0); AaDO2 214.3 mmHg; COHb 1.1 % (0.5-1.5); MetHb 0.2 % (0.0-1.5); O2Hb 89.5 % (94.0-97.0)
[2021-11-26] MEDS ORDERED: DILTIAZEM HCL 90 MG PO SCH (13:00)
[2021-11-26] MEDS ORDERED: DEMECLOCYCLINE HCL 150 MG TABLET PO SCH (13:00)
[2021-11-26] MEDS: DILTIAZEM HCL 30 MG TABLET PO SCH ×2 (13:27→17:22)
--- NOTE | 2021-11-26 14:30 | NUR ---
RN NOTE PT ENDORSED 6/10 PAIN. RN WILL FOLLOW PRN PAIN MANAGEMENT GUIDELINES.
[2021-11-26] MEDS: HYDROCODONE/APAP 5/325MG TABLET PO PRN (14:31)
--- NOTE | 2021-11-26 15:55 | NUR ---
MD COMMUNICATION RN INFORMED DR. IRAHETA THAT PT CONTINUES TO PULL OFF MASK IMPAIRING BREATHING. MD GAVE ORDERS, BILATERAL SOFT WRIST RESTRAINTS. RN ACKNOWLEDGED AND WILL EXECUTE ORDER.
--- NOTE | 2021-11-26 16:00 | NUR ---
placed on bipap for elevated work of breathing
[2021-11-26] MEDS: METOPROLOL TARTRATE 50 MG TABLET PO SCH (17:22)
[2021-11-26] MEDS: risperiDONE 0.25 MG TABLET PO SCH (17:22)
[2021-11-26] MEDS: RIVAROXABAN 10 MG TABLET PO SCH (17:24)
--- NOTE | 2021-11-26 19:20 | NUR ---
RN NOTES PT FOUND SEMI FOWLERS DISPLAYING NO S/S OF DISTRESS, FLACC = 0 AND BILATERAL RISE AND FALL OF THE CHEST OBSERVED ON BIPAP. BILATERAL SOFT WRISTS APPLIED, PULSES PALPATED AND CAP REFILL < 3 SECONDS BILATERALLY. R UA ML IS PATIENT AND INTACT. CALLAWAY CATH BELOW PATIENT DRAINING BY GRAVITY. SBAR AND REPORT GIVEN TO SEMIAUTOMATIC TAPER OPERATOR RN, ALL QUESTIONS ANSWERED. SAFETY MEASURES IN PLACE, BED LOCKED AND IN LOWEST POSITION, SIDE RAILS UPX2, CALL LIGHT WITHIN REACH, BED ALARM ARMED. PT ENDORSED IN STABLE CONDITION FOR NIA.
[2021-11-26] MEDS: IV NS 0.9% 250 ML IV PRN (19:59)
--- NOTE | 2021-11-26 20:00 | NUR ---
ICU NOTES Received patient alert but confused.DX: Acute Respiratory distress,AMS.On BIPAP 15/5,18.40%. No acute respiratory distress noted.SPO2 95%.Respiration even and unlabored.ST normotensive. Bilateral soft wrist restraints on for safety.No circulatory impairment noted.FC o gravity.NS at tko infusing to BERNA ML site intact.Turned and repositioned.Safety measures implemented.Call light at BS.
[2021-11-26] MEDS: Z GUARD REMEDY 4 OZ OINT TP PRN ×3 (21:08→21:13)
[2021-11-26] MEDS: Z GUARD REMEDY 4 OZ OINT TP SCH (22:17)
[2021-11-27] VITALS (24 sets, daily range): BP systolic 105–161; BP diastolic 69–95
[2021-11-27] MEDS: ALBUTEROL HALF STRENGTH 1.25 MG/3 ML VIAL.NEB NEB SCH ×6 (03:37→23:01)
[2021-11-27] MEDS: IPRATROPIUM NEB FS 0.5 MG/2.5 ML AMPUL.NEB NEB SCH ×6 (03:37→23:01)
[2021-11-27] MEDS: CEFTRIAXONE 1 G in IV D5W 50 ML IV SCH (04:09)
[2021-11-27] MEDS: methylPREDNISolone SOD SUCC 125 MG/2ML VIAL IV SCH ×3 (04:52→20:24)
[2021-11-27] MEDS: AZITHROMYCIN 500 MG in IV D5W 250 ML IV SCH (04:53)
[2021-11-27 05:24] LABS: BASOPHILS % (AUTO) 0.1 % (0.0-2.0); HEMATOCRIT 32 % (39-51); HEMOGLOBIN 10.4 g/dL (13.5-17.5); LYMPHOCYTES % (AUTO) 0.5 % (20.0-44.0); MEAN CORPUSCULAR HGB CONC 33 g/dl (31.0-36.0); MEAN CORPUSCULAR VOLUME 90 fL (80-96); MONOCYTES # (AUTO) 0.1 K/uL (0.1-1.30); MONOCYTES % (AUTO) 1.1 % (2.0-12.0); NEUTROPHILS # (AUTO) 7.3 K/uL (1.8-8.9); NEUTROPHILS % (AUTO) 98.3 % (43.0-81.0); PLATELET COUNT (AUTO) 176 K/uL (150-450); RED BLOOD CELL COUNT(AUTO) 3.52 MIL/uL (4.5-6.0); WHITE BLOOD COUNT (AUTO) 7.4 K/uL (4.3-11.0)
[2021-11-27 05:42] LABS: CALCIUM, SERUM 8.6 mg/dL (8.5-10.1); CREATININE 0.5 mg/dL (0.6-1.3); MAGNESIUM 1.9 mg/dL (1.8-2.4); PHOSPHORUS 3.4 mg/dL (2.5-4.9); POTASSIUM 4.2 mmol/L (3.5-5.1)
--- NOTE | 2021-11-27 06:14 | NUR ---
END NOTE Patient resting in no acute distress.Vital signs remains stable.SR.Confused with bilateral soft wrist restraints on and released Q 2 HRS.No complications noted.AM care done.All due medications administered.Turned and repositioned Q 2 hrs.Will endorse to day shift for NIA.
[2021-11-27] MEDS ORDERED: PANTOPRAZOLE 40 MG TABLET.DR PO SCH (07:30)
--- NOTE | 2021-11-27 08:00 | NUR ---
RN NOTES RECEIVED PATIENT ON BIPAP 30%.PATIENT A/O X1 WITH FORGETFULNESS. PATIENT ON CARDIAC DIET, ASKING FOOD. RECHECKED BILATERAL SOFT RESTRAIN. PATIENT ON TKO, CALLAWAY DRAINING VA GRAVITY. PATIENT ABLE TO TURN AND REPOSTION SELF. DUE MEDICATION ADMINISTERED. CALL LIGHT WITHIN TO REACH, WILL FOLLOW UP.
--- NOTE | 2021-11-27 08:53 | NUR ---
oxygen flow increased from 30% to 40% via venturi mask due to 39 pao2 and 81% spo2. Addendum: 11/27/21 at 0854 by DG HERMOSILLO RT Amended: Links added.
[2021-11-27] MEDS ORDERED: CHOLECALCIFEROL 2000 UNIT PO SCH (09:00)
[2021-11-27] MEDS: Z GUARD REMEDY 4 OZ OINT TP SCH ×2 (09:00→20:22)
[2021-11-27] MEDS: ASCORBIC ACID 500 MG TABLET PO SCH (10:35)
[2021-11-27] MEDS: DILTIAZEM HCL 30 MG TABLET PO SCH ×3 (10:35→17:54)
[2021-11-27] MEDS: PANTOPRAZOLE 40 MG VIAL IV SCH (10:35)
[2021-11-27] MEDS: risperiDONE 0.25 MG TABLET PO SCH ×2 (10:36→17:54)
[2021-11-27] MEDS: CHOLECALCIFEROL 1,000 UNIT TABLET (VIT D3) PO SCH (10:36)
[2021-11-27] MEDS: FUROSEMIDE 20 MG TABLET PO SCH (10:36)
[2021-11-27] MEDS: METOPROLOL TARTRATE 50 MG TABLET PO SCH ×2 (10:36→17:54)
[2021-11-27] MEDS: RIVAROXABAN 10 MG TABLET PO SCH (17:53)
--- NOTE | 2021-11-27 18:00 | NUR ---
RN NOTES PATIENT ON FACE MASK FIO2-24%, MONITOR SHOWS 94%TOLERATED DINNER 10%.PATIENT DUE MEDICATION ADMINISTERED. PATIENT ABLE TO TURN AND REPOSITION SELF IN THE BED. CALL LIGHT NEAR TO REACH. PM CARE DONE. CALLAWAY DRAINING LIGHT YELLOW OUTPUT. ENDORSED ONCOMING NURSE FOLLOW PLAN OF CARE.
[2021-11-27] MEDS: IV NS 0.9% 250 ML IV PRN (18:03)
--- NOTE | 2021-11-27 19:30 | NUR ---
RN NOTES RECEIVED CARE OF PATIENT WHILE PATIENT CONFUSED. ALERT TO NAME AND PLACE ONLY, ABLE TO MAKE NEEDS KNOWN. PATIENT IN NO DISTRESS OR PAIN AT THIS TIME, REPOSITIONED FOR COMFORT. PATIENT ON OXYGEN THERAPY VIA VENTURI MASK. FIO2 24%, O2 SAT 97%, NO SOB NOTED. NO SIGNIFICANT FINDINGS UPON INITIAL NURSING ASSESSMENTS. SAFETY MEASURES IMPLEMENTED PER HOSPITAL PROTOCOLS. WILL CONTINUE TO MONITOR.
[2021-11-28] VITALS (26 sets, daily range): BP systolic 115–151; BP diastolic 36–99
[2021-11-28] MEDS: IPRATROPIUM NEB FS 0.5 MG/2.5 ML AMPUL.NEB NEB SCH ×6 (03:28→23:06)
[2021-11-28] MEDS: ALBUTEROL HALF STRENGTH 1.25 MG/3 ML VIAL.NEB NEB SCH ×6 (03:28→23:06)
[2021-11-28] MEDS: CEFTRIAXONE 1 G in IV D5W 50 ML IV SCH (04:39)
[2021-11-28] MEDS: methylPREDNISolone SOD SUCC 125 MG/2ML VIAL IV SCH ×3 (04:40→20:16)
[2021-11-28] MEDS: AZITHROMYCIN 500 MG in IV D5W 250 ML IV SCH (05:54)
--- NOTE | 2021-11-28 07:20 | NUR ---
RN NOTES ENDORSED CARE OF PATIENT WHILE PATIENT IN BED, ASLEEP, WAKES UP TO NAME. PATIENT RECEIVED NOCTURNAL TREATMENT OF O2 THERAPY VIA BIPAP, TOLERATED WELL. PATIENT NOW ON VENTURI MASK AT 12L, BREATHING EVEN AND UNLABORED, O2 SAT 94%. NO SIGNIFICANT FINDINGS UPON ALL NURSING ASSESSMENTS. ENDORSED TO AM NURSE FOR NIA.
--- NOTE | 2021-11-28 07:38 | NUR ---
WOUND CARE CONSULT: PT PRESENTS WITH LEFT ARM WOUND, RASH TO PERINEUM AND INNER THIGHS WELL DISCOLORATION TO RT 3RD TOE (WITHOUT NAIL), ALL PRESENT ON ADMISSION. DR RUBIO AND DR BREEN CALLED FOR SURGICAL AND DPM CONSULT REQUESTS. RECOMMENDATIONS MADE FOR SKIN PROTECTION. DISCUSSED WITH NURSING STAFF. MD IN AGREEMENT WITH PLAN OF CARE.
--- NOTE | 2021-11-28 08:00 | NUR ---
RN NOTES RECEIVED PATIENT ON FACE MASK 10L, A/O X1 WITH FORGETFULNESS, NEED REDIRECTING. PATIENT ON CARDIAC DIET TOLERATING BREAKFAST WELL. CALLAWAY DRAINING VA GRAVITY. PATIENT ABLE TO TURN AND REPOSTION SELF IN THE BED. DUE MEDICATION ADMINISTERED. RT WITH THE PATIENT FOR BREATHING TREATMENT. CALL LIGHT WITHIN TO REACH, WILL FOLLOW UP.
[2021-11-28 08:46] LABS: BASOPHILS # (AUTO) 0.1 K/uL (0.0-0.2); BASOPHILS % (AUTO) 0.6 % (0.0-2.0); EOSINOPHILS % (AUTO) 0.1 % (0.0-6.0); HEMATOCRIT 35 % (39-51); HEMOGLOBIN 11.5 g/dL (13.5-17.5); LYMPHOCYTES % (AUTO) 0.4 % (20.0-44.0); MEAN CORPUSCULAR HGB CONC 33 g/dl (31.0-36.0); MEAN CORPUSCULAR VOLUME 89 fL (80-96); MONOCYTES # (AUTO) 0.1 K/uL (0.1-1.30); MONOCYTES % (AUTO) 1.2 % (2.0-12.0); NEUTROPHILS # (AUTO) 10.4 K/uL (1.8-8.9); NEUTROPHILS % (AUTO) 97.7 % (43.0-81.0); PLATELET COUNT (AUTO) 169 K/uL (150-450); RED BLOOD CELL COUNT(AUTO) 3.94 MIL/uL (4.5-6.0); WHITE BLOOD COUNT (AUTO) 10.7 K/uL (4.3-11.0)
[2021-11-28 08:55] LABS: CALCIUM, SERUM 8.3 mg/dL (8.5-10.1); CREATININE 0.4 mg/dL (0.6-1.3); POTASSIUM 3.5 mmol/L (3.5-5.1)
[2021-11-28] MEDS: METOPROLOL TARTRATE 50 MG TABLET PO SCH ×2 (09:50→17:30)
[2021-11-28] MEDS: CHOLECALCIFEROL 1,000 UNIT TABLET (VIT D3) PO SCH (09:50)
[2021-11-28] MEDS: DILTIAZEM HCL 30 MG TABLET PO SCH ×3 (09:51→17:30)
[2021-11-28] MEDS: FUROSEMIDE 20 MG TABLET PO SCH (09:51)
[2021-11-28] MEDS: ASCORBIC ACID 500 MG TABLET PO SCH (09:51)
[2021-11-28] MEDS: PANTOPRAZOLE 40 MG TABLET.DR PO SCH (09:53)
[2021-11-28] MEDS: risperiDONE 0.25 MG TABLET PO SCH ×2 (09:53→17:30)
[2021-11-28] MEDS: Z GUARD REMEDY 4 OZ OINT TP SCH ×2 (09:54→20:17)
[2021-11-28] MEDS: RIVAROXABAN 10 MG TABLET PO SCH (17:31)
[2021-11-28] MEDS: CLOTRIMAZOLE 1% 15 GM TUBE TP SCH (17:33)
--- NOTE | 2021-11-28 18:30 | NUR ---
RN NOTES GET NEW ORDER START NS@75ML/HR BECAUSE OF LOW [id number]-128. ORDER TAKEN AND CARRIED OUT.
[2021-11-28] MEDS: IV NS 0.9% 1,000 ML IV SCH (18:31)
--- NOTE | 2021-11-28 18:50 | NUR ---
RN NOTES PATIENT ANXIOUS, DELUSIONAL, USING ACCESSORY MUSCLES TO BREATH,PATIENT ON FACE MASK 10L, NOTIFIED RT TO GIVE BREATHING TREATMENT . ENDORSED ONCOMING NURSE FOLLOW NIA.
--- NOTE | 2021-11-28 19:12 | NUR ---
RN NOTES RECEIVED CARE OF PATIENT, PATIENT AGITATED, CONFUSED, RESPONDS TO NAME ONLY. PATIENT ABLE TO MAKE IMMEDIATE NEEDS KNOWN. PATIENT COMPLAINS OF SOB, YELLING AND RESTLESSNESS NOTED, O2 SAT 94%, PATIENT ON MASK RUNNING WITH 10L O2 THERAPY. RT NOTIFIED FOR BREATHING TREATMENT. PATIENT WITH IV ACCESS ON BERNA MIDLINE, PATENT, RUNNING WITH NS AT 75CC/HR. SAFETY MEASURES IMPLEMENTED PER HOSPITAL PROTOCOLS. WILL CONTINUE TO MONITOR PATIENT.
--- NOTE | 2021-11-28 20:00 | NUR ---
RN NOTES PATIENT PLACED ON ORDERED NOCTURNAL BIPAP OXYGEN THERAPY WITH ORDERED SETTINGS BY RESPIRATORY THERAPIST. PATIENT TOLERATING BIPAP WELL. BIPAP WILL BE REMOVED IN AM PER MD ORDERS. WILL CONTINUE TO MONITOR.
[2021-11-29] VITALS (18 sets, daily range): BP systolic 119–184; BP diastolic 25–120
[2021-11-29] MEDS: ALBUTEROL HALF STRENGTH 1.25 MG/3 ML VIAL.NEB NEB SCH ×6 (04:29→23:27)
[2021-11-29] MEDS: CEFTRIAXONE 1 G in IV D5W 50 ML IV SCH (04:29)
[2021-11-29] MEDS: IPRATROPIUM NEB FS 0.5 MG/2.5 ML AMPUL.NEB NEB SCH ×6 (04:29→23:27)
[2021-11-29] MEDS: methylPREDNISolone SOD SUCC 125 MG/2ML VIAL IV SCH ×3 (04:30→20:48)
[2021-11-29 04:57] LABS: BASOPHILS % (AUTO) 0.1 % (0.0-2.0); HEMATOCRIT 33 % (39-51); HEMOGLOBIN 11.1 g/dL (13.5-17.5); LYMPHOCYTES % (AUTO) 0.3 % (20.0-44.0); MEAN CORPUSCULAR HGB CONC 34 g/dl (31.0-36.0); MEAN CORPUSCULAR VOLUME 88 fL (80-96); MONOCYTES # (AUTO) 0.2 K/uL (0.1-1.30); MONOCYTES % (AUTO) 2.1 % (2.0-12.0); NEUTROPHILS # (AUTO) 9.4 K/uL (1.8-8.9); NEUTROPHILS % (AUTO) 97.5 % (43.0-81.0); PLATELET COUNT (AUTO) 171 K/uL (150-450); RED BLOOD CELL COUNT(AUTO) 3.74 MIL/uL (4.5-6.0); WHITE BLOOD COUNT (AUTO) 9.6 K/uL (4.3-11.0)
[2021-11-29 05:10] LABS: CREATININE 0.4 mg/dL (0.6-1.3); MAGNESIUM 1.6 mg/dL (1.8-2.4); PHOSPHORUS 2.9 mg/dL (2.5-4.9); POTASSIUM 3.4 mmol/L (3.5-5.1)
[2021-11-29] MEDS: AZITHROMYCIN 500 MG in IV D5W 250 ML IV SCH (05:16)
[2021-11-29] MEDS: DILTIAZEM HCL 30 MG TABLET PO SCH ×3 (08:15→17:15)
[2021-11-29] MEDS: PANTOPRAZOLE 40 MG TABLET.DR PO SCH (08:16)
[2021-11-29] MEDS: risperiDONE 0.25 MG TABLET PO SCH ×2 (08:16→17:15)
[2021-11-29] MEDS: METOPROLOL TARTRATE 50 MG TABLET PO SCH ×2 (08:16→17:16)
[2021-11-29] MEDS: ASCORBIC ACID 500 MG TABLET PO SCH (08:16)
[2021-11-29] MEDS: FUROSEMIDE 20 MG TABLET PO SCH (08:17)
[2021-11-29] MEDS: CHOLECALCIFEROL 1,000 UNIT TABLET (VIT D3) PO SCH (08:17)
[2021-11-29] MEDS: IV NS 0.9% 1,000 ML IV SCH (08:17)
[2021-11-29] MEDS: CLOTRIMAZOLE 1% 15 GM TUBE TP SCH ×2 (08:20→17:16)
[2021-11-29] MEDS: Z GUARD REMEDY 4 OZ OINT TP SCH ×2 (08:20→21:18)
[2021-11-29] MEDS ORDERED: POTASSIUM CHLORIDE 20 MEQ TAB.PRT.SR PO SCH (09:30)
[2021-11-29] MEDS: Magnesium 1GM/D5W 100ML PREMIX 100 ML IV SCH ×2 (10:20→11:26)
[2021-11-29 10:48] LABS: ABG PCO2 56.5 mmHg (35.0-45.0); ABG PH 7.436 (7.350-7.450); ABG PO2 72.3 mmHg (75.0-100.0); COHb 0.2 % (0.5-1.5); MetHb 0.2 % (0.0-1.5); O2Hb 93.2 % (94.0-97.0); SITE, ABG Right Radial; VENT MODE, BG 5L N/C
--- NOTE | 2021-11-29 13:45 | NUR ---
RECEIVED PATIENT FROM ICU VIA BED ACCOMPANIED BY CHARGE NURSE FROM ICU PATIENT A/A X3 ABLE TO VERBALIZE NEEDS AND CONCERNS, ON 5LPM VIA NC NO SOB/ACUTE DISTRESS NOTED WITH VS 127/75, 98%, 80, 18, 98.0, PATIENT WITH TRIP MIDLINE IN PLACE IVF INFUSING ORDERED, WILL CONTINUE TO MONITOR CLOSELY.
[2021-11-29] MEDS: RIVAROXABAN 10 MG TABLET PO SCH (17:19)
--- NOTE | 2021-11-29 18:39 | NUR ---
PATIENT EATING DINNER, A/O X3 NO SOB/ACUTE DISTRESS NOTED, NO SIGNIFICANT CHANGE IN CONDITION DURING MY SHIFT, WILL BE NOCTURNAL BIPAP, SISTER ROMELIA AWARE THAT PT WAS TRANSFERRED FROM ICU TO TELEMETRY, WILL ENDORSE CONTINUITY OF CARE TO ONCOMING NURSE.
--- NOTE | 2021-11-29 20:14 | NUR ---
jack spinner Opening Note Pt received in bed high-Fowlers, awake, A&O x2, forgetful, requires reorientation. On NC at 5L, pt noted to have grunting; no SOB noted, no s/s of resp distress. Pt will be placed on nocturnal BiPap tonight; will monitor. Pt attached to external monitor, SR with HR 72. BERNA midline intact and patent with NS running at 75 ml/hr. Rees intact and patent, noted to have clear and yellow urine. Bed in lowest position, call light within reach, side rails up x3. Will monitor throughout the night.
[2021-11-29] MEDS: Z GUARD REMEDY 4 OZ OINT TP PRN (21:06)
[2021-11-30] VITALS: BP 130/85
[2021-11-30] MEDS: IV NS 0.9% 1,000 ML IV SCH ×2 (00:39→12:41)
--- NOTE | 2021-11-30 00:44 | NUR ---
RN Note Pt confused and removed BiPAP, new one replaced by RT.
[2021-11-30] MEDS: IPRATROPIUM NEB FS 0.5 MG/2.5 ML AMPUL.NEB NEB SCH ×6 (03:54→23:17)
[2021-11-30] MEDS: ALBUTEROL HALF STRENGTH 1.25 MG/3 ML VIAL.NEB NEB SCH ×6 (03:54→23:17)
[2021-11-30 04:00] VITALS: BP 142/94
[2021-11-30] MEDS: CEFTRIAXONE 1 G in IV D5W 50 ML IV SCH (04:19)
[2021-11-30] MEDS: methylPREDNISolone SOD SUCC 125 MG/2ML VIAL IV SCH ×3 (05:02→17:16)
[2021-11-30] MEDS: AZITHROMYCIN 500 MG in IV D5W 250 ML IV SCH (05:02)
--- NOTE | 2021-11-30 05:33 | NUR ---
RT NOTE PT REMOVED OFF BIPAP AND PLACED ON 5 LPM NASAL CANNULA. NO RESPIRATORY DISTRESS NOTED. TATA FRANCIS @ BEDSIDE.
[2021-11-30 06:27] LABS: BASOPHILS % (AUTO) 0.1 % (0.0-2.0); HEMATOCRIT 35 % (39-51); HEMOGLOBIN 11.6 g/dL (13.5-17.5); LYMPHOCYTES % (AUTO) 0.4 % (20.0-44.0); MEAN CORPUSCULAR HGB CONC 34 g/dl (31.0-36.0); MEAN CORPUSCULAR VOLUME 88 fL (80-96); MONOCYTES # (AUTO) 0.2 K/uL (0.1-1.30); MONOCYTES % (AUTO) 2.6 % (2.0-12.0); NEUTROPHILS # (AUTO) 8.3 K/uL (1.8-8.9); NEUTROPHILS % (AUTO) 96.9 % (43.0-81.0); PLATELET COUNT (AUTO) 141 K/uL (150-450); RED BLOOD CELL COUNT(AUTO) 3.94 MIL/uL (4.5-6.0); WHITE BLOOD COUNT (AUTO) 8.6 K/uL (4.3-11.0)
--- NOTE | 2021-11-30 06:36 | NUR ---
water/wastewater project manager Closing Note Pt in bed, positioned at high-Fowlers, slept intermittently throughout the night. A&O x2, forgetful, requires reorientation. Pt placed on nocturnal BiPAP from 2279-1444; now on NC at 5L. Pt noted to have periods of SOB last night with deep, labored breathing. Pt attached to external monitor, SR throughout the night with HR 84. BERNA midline intact and patent with NS running at 75 ml/hr. Prescribed antibiotics infused during shift. Rees intact and patent, urine is clear and yellow. Bed in lowest position, call light within reach, side rails up x3. Will endorse to dayshift nurse to continue care.
[2021-11-30 07:14] LABS: CALCIUM, SERUM 8.1 mg/dL (8.5-10.1); CREATININE 0.4 mg/dL (0.6-1.3); MAGNESIUM 1.9 mg/dL (1.8-2.4); POTASSIUM 3.4 mmol/L (3.5-5.1)
[2021-11-30 08:00] VITALS: BP 144/98
--- NOTE | 2021-11-30 08:00 | NUR ---
mechanic/welder Opening Note Pt in bed, awake, A&O x2, forgetful, requires reorientation. Pt on NC 5L. Pt presents with SOB and grunting heard. Pt attached to external monitor, SR current HR 85. BERNA midline intact and patent with NS running at 75 ml/hr. No s/s of infiltration. Rees intact and patent, urine is clear and yellow. Bed in lowest position, call light within reach, side rails up x3. Will continue to monitor.
[2021-11-30] MEDS: DILTIAZEM HCL 30 MG TABLET PO SCH ×3 (08:26→17:16)
[2021-11-30] MEDS: PANTOPRAZOLE 40 MG TABLET.DR PO SCH (08:27)
[2021-11-30] MEDS: CHOLECALCIFEROL 1,000 UNIT TABLET (VIT D3) PO SCH (08:27)
[2021-11-30] MEDS: METOPROLOL TARTRATE 50 MG TABLET PO SCH ×2 (08:27→17:15)
[2021-11-30] MEDS: risperiDONE 0.25 MG TABLET PO SCH ×2 (08:27→17:16)
[2021-11-30] MEDS: FUROSEMIDE 20 MG TABLET PO SCH (08:28)
[2021-11-30] MEDS: ASCORBIC ACID 500 MG TABLET PO SCH (08:28)
[2021-11-30] MEDS: Z GUARD REMEDY 4 OZ OINT TP SCH ×2 (09:00→21:30)
[2021-11-30] MEDS: CLOTRIMAZOLE 1% 15 GM TUBE TP SCH ×2 (09:00→17:31)
[2021-11-30] MEDS: Z GUARD REMEDY 4 OZ OINT TP PRN ×2 (11:22→13:58)
[2021-11-30 12:00] VITALS: BP 131/89
[2021-11-30] MEDS ORDERED: POTASSIUM CHLORIDE 20 MEQ TAB.PRT.SR PO SCH (12:00)
--- NOTE | 2021-11-30 14:25 | NUR ---
RN Note Mid-shift endorsement given to Marga PAYTON. Updated RN with pt's health status and all due meds and fluids that were administered from [id number].
[2021-11-30 16:00] VITALS: BP 131/89
--- NOTE | 2021-11-30 16:00 | NUR ---
RN NOTE Received mid-shift report from TATA Gresham for NIA.
[2021-11-30] MEDS: RIVAROXABAN 10 MG TABLET PO SCH (17:17)
--- NOTE | 2021-11-30 19:28 | NUR ---
LVN LPN CLOSING NOTE Patient in bed, resting. A/O x 2, able to make needs known. On O2 at 5 LPM, No s/s of distress noted. IV access on BERNA midline infusing NS at 75 ml.hr. Rees catheter in place draining to a yellow colored urine with an output of 2500cc. All needs attended to. Due meds given. Safety precautions maintained: bed in low, locked position; siderails up x 2; call light within reach. Will continue to monitor. Addendum: 11/30/21 at 1932 by FRAN SANTOS RN CORRECTION: Will endorse to [facility] shift lead nurse for NIA.
--- NOTE | 2021-11-30 19:41 | NUR ---
RN NOTE PATIENT IN BED, ALERT AND ORIENTED X2. PERIODS OF CONFUSION. CURRENTLY ON O2 5L VIA NASAL CANNULA, NO S/S OF RESPIRATORY DISTRESS. ON TELE, SR ON MONITOR. DENIES ANY PAIN AT THIS TIME. CALLAWAY CATH IN PLACE, DRAINING VIA GRAVITY. IV ACCESS ON BERNA MIDLINE INFUSING NS @ 75ML/HR, NO S/S OF INFILTRATION. SAFETY MEASURES MAINTAINED. BED LOCKED AND IN LOWEST POSITION. CALL LIGHT WITHIN REACH. ALL NEEDS ANTICIPATED.
[2021-11-30 20:00] VITALS: BP 125/80
[2021-12-01] VITALS: BP 125/80
[2021-12-01] MEDS: IPRATROPIUM NEB FS 0.5 MG/2.5 ML AMPUL.NEB NEB SCH ×6 (03:32→23:27)
[2021-12-01] MEDS: ALBUTEROL HALF STRENGTH 1.25 MG/3 ML VIAL.NEB NEB SCH ×6 (03:33→23:27)
[2021-12-01 04:00] VITALS: BP 136/91
[2021-12-01] MEDS: IV NS 0.9% 1,000 ML IV SCH ×2 (04:04→13:10)
[2021-12-01] MEDS: CEFTRIAXONE 1 G in IV D5W 50 ML IV SCH (04:06)
[2021-12-01 06:13] LABS: BASOPHILS % (AUTO) 0.1 % (0.0-2.0); HEMATOCRIT 34 % (39-51); HEMOGLOBIN 11.2 g/dL (13.5-17.5); LYMPHOCYTES % (AUTO) 0.2 % (20.0-44.0); MEAN CORPUSCULAR HGB CONC 34 g/dl (31.0-36.0); MEAN CORPUSCULAR VOLUME 88 fL (80-96); MONOCYTES # (AUTO) 0.3 K/uL (0.1-1.30); MONOCYTES % (AUTO) 3.8 % (2.0-12.0); NEUTROPHILS # (AUTO) 7.5 K/uL (1.8-8.9); NEUTROPHILS % (AUTO) 95.9 % (43.0-81.0); PLATELET COUNT (AUTO) 148 K/uL (150-450); RED BLOOD CELL COUNT(AUTO) 3.83 MIL/uL (4.5-6.0); WHITE BLOOD COUNT (AUTO) 7.9 K/uL (4.3-11.0)
[2021-12-01 06:18] LABS: CALCIUM, SERUM 7.9 mg/dL (8.5-10.1); CREATININE 0.4 mg/dL (0.6-1.3); POTASSIUM 3.3 mmol/L (3.5-5.1)
--- NOTE | 2021-12-01 06:40 | NUR ---
RN NOTE PATIENT RESTING IN BED. WAS ON NOC BIPAP OVER NIGHT, NOW ON O2 5L VIA NASAL CANNULA AND TOLERATING WELL. CALLAWAY CATH IN PLACE, OUTPUT 1800CC. IV ACCESS ON BERNA MIDLINE INFUSING NS @ 75ML/HR, NO S/S OF INFILTRATION. SAFETY MEASURES MAINTAINED. NO SIGNIFICANT CHANGES DURING THIS SHIFT. DUE MEDS GIVEN ORDERED. BED LOCKED AND IN LOWEST POSITION. CALL LIGHT WITHIN REACH. ALL NEEDS ANTICIPATED.
--- NOTE | 2021-12-01 07:30 | NUR ---
ms rn received patient on bed, awake,alert,oriented x2-3,not in distress, no sob noted, w/ adequate saturation,denies pain at this time, will monitor patient.
[2021-12-01 08:00] VITALS: BP 136/78
--- NOTE | 2021-12-01 08:45 | NUR ---
ms haro breakfast served,due meds given, tolerated well.
[2021-12-01] MEDS: methylPREDNISolone SOD SUCC 125 MG/2ML VIAL IV SCH ×2 (09:04→17:33)
[2021-12-01] MEDS: risperiDONE 0.25 MG TABLET PO SCH ×2 (09:04→17:34)
[2021-12-01] MEDS: CHOLECALCIFEROL 1,000 UNIT TABLET (VIT D3) PO SCH (09:04)
[2021-12-01] MEDS: ASCORBIC ACID 500 MG TABLET PO SCH (09:04)
[2021-12-01] MEDS: FUROSEMIDE 20 MG TABLET PO SCH (09:04)
[2021-12-01] MEDS: DILTIAZEM HCL 30 MG TABLET PO SCH ×3 (09:06→17:35)
[2021-12-01] MEDS: METOPROLOL TARTRATE 50 MG TABLET PO SCH ×2 (09:06→17:34)
[2021-12-01] MEDS: Z GUARD REMEDY 4 OZ OINT TP SCH ×2 (09:07→21:28)
[2021-12-01] MEDS: CLOTRIMAZOLE 1% 15 GM TUBE TP SCH ×2 (09:07→17:35)
[2021-12-01] MEDS: PANTOPRAZOLE 40 MG TABLET.DR PO SCH (09:11)
[2021-12-01] MEDS ORDERED: POTASSIUM CHLORIDE 20 MEQ TAB.PRT.SR PO SCH (10:00)
[2021-12-01 12:00] VITALS: BP 136/79
[2021-12-01 16:00] VITALS: BP 129/84
[2021-12-01] MEDS: RIVAROXABAN 10 MG TABLET PO SCH (17:34)
--- NOTE | 2021-12-01 18:07 | NUR ---
ms rn on bed,eating dinner,no change of condition,all needs attended.
[2021-12-01 20:00] VITALS: BP 146/88
--- NOTE | 2021-12-01 20:30 | NUR ---
talent development director Opening Note Pt received in bed, awake, A&O x2. Pt on NC 5L; pt will be placed on nocturnal BiPAP. Pt noted to have SOB and grunting. Pt attached to external monitor, SR HR 74. BERNA midline intact and patent with NS running at 75 ml/hr. No s/s of infiltration. Rees intact and patent, draining clear and yellow urine. Bed in lowest position, call light within reach, side rails up x3. Will continue to monitor throughout the night.
[2021-12-02] VITALS (7 sets, daily range): BP systolic 115–155; BP diastolic 87–99
--- NOTE | 2021-12-02 00:07 | NUR ---
RT PT IS REFUSING BIPAP AT THIS TIME. NO SOB OR RESPIRATORY DISTRESS NOTED AT THIS TIME. RN INFORMED
--- NOTE | 2021-12-02 00:10 | NUR ---
RN Note Per RT Sriisha, pt denies wearing nocturnal BiPAP. Pt in no s/s of resp distress except for usual SOB. Will monitor throughout the night.
[2021-12-02] MEDS: IV NS 0.9% 1,000 ML IV SCH (02:06)
[2021-12-02] MEDS: CEFTRIAXONE 1 G in IV D5W 50 ML IV SCH (03:41)
--- NOTE | 2021-12-02 03:43 | NUR ---
RT NEB TX GIVEN AND AGAIN ASKED PT TO USE BIPAP AND PT REFUSED. RN NATY AWARE. NO SOB OR RESPIRATORY DISTRESS NOTED AT THIS TIME. PT DENIES ANY SOB.
[2021-12-02] MEDS: IPRATROPIUM NEB FS 0.5 MG/2.5 ML AMPUL.NEB NEB SCH ×6 (03:50→23:12)
[2021-12-02] MEDS: ALBUTEROL HALF STRENGTH 1.25 MG/3 ML VIAL.NEB NEB SCH ×6 (03:50→23:12)
--- NOTE | 2021-12-02 06:22 | NUR ---
career transition specialist Closing Note Pt in bed, awake; bed in high-Montanez's; A&O x2, forgetful, requires reminders. Pt refused to be put on nocturnal BiPAP last night; showed no s/s of resp distress except for usual SOB and grunting; O2sat maintained in low 90s. Pt attached to external monitor, SR throughout the night with HR 84. BERNA midline intact and patent with NS running at 75 ml/hr. Prescribed antibiotics infused during shift. Rees intact and patent, urine is clear and yellow. Bed in lowest position, call light within reach, side rails up x3. Will endorse to dayshift nurse to continue care.
[2021-12-02 06:25] LABS: BASOPHILS % (AUTO) 0.2 % (0.0-2.0); EOSINOPHILS % (AUTO) 0.1 % (0.0-6.0); HEMATOCRIT 36 % (39-51); HEMOGLOBIN 11.9 g/dL (13.5-17.5); LYMPHOCYTES % (AUTO) 0.5 % (20.0-44.0); MEAN CORPUSCULAR HGB CONC 33 g/dl (31.0-36.0); MEAN CORPUSCULAR VOLUME 88 fL (80-96); MONOCYTES # (AUTO) 0.4 K/uL (0.1-1.30); NEUTROPHILS # (AUTO) 7.4 K/uL (1.8-8.9); NEUTROPHILS % (AUTO) 94.2 % (43.0-81.0); PLATELET COUNT (AUTO) 158 K/uL (150-450); RED BLOOD CELL COUNT(AUTO) 4.06 MIL/uL (4.5-6.0); WHITE BLOOD COUNT (AUTO) 7.8 K/uL (4.3-11.0)
[2021-12-02 06:43] LABS: CALCIUM, SERUM 7.8 mg/dL (8.5-10.1); CREATININE 0.4 mg/dL (0.6-1.3); POTASSIUM 3.6 mmol/L (3.5-5.1)
--- NOTE | 2021-12-02 07:30 | NUR ---
RN OPENING NOTE PATIENT IS IN BED, ON CONDE'S POSITION. ALERT, ORIENTED X 2. WITH 02 VIA NASAL CANNULA AT 5L/MIN, WITH O2 SATURATION AT 91%. DENIES PAIN, NOT IN OBVIOUS DISTRESS. ON VARNISH COOKER AT 110 BPM. WITH CALLAWAY CATHETER DRAINING TO YELLOW COLORED URINE. WITH RIGHT UPPER ARM MIDLINE INFUSING WITH NS AT 75 ML/HR, INTACT, PATENT AND WITH NO SIGNS OF INFILTRATION. BED IS LOCKED IN THE LOWEST POSITION, 3 GUARD RAILS RAISED, CALL LILLY WITHIN REACH, AND ALL HOSPITAL PRECAUTIONS ARE IN PLACE. WILL CONTINUE TO MONITOR THROUGHOUT SHIFT.
[2021-12-02] MEDS: PANTOPRAZOLE 40 MG TABLET.DR PO SCH (08:06)
[2021-12-02] MEDS: methylPREDNISolone SOD SUCC 125 MG/2ML VIAL IV SCH ×2 (08:36→17:27)
[2021-12-02] MEDS: DILTIAZEM HCL 30 MG TABLET PO SCH ×3 (08:37→17:23)
[2021-12-02] MEDS: FUROSEMIDE 20 MG TABLET PO SCH (08:37)
[2021-12-02] MEDS: risperiDONE 0.25 MG TABLET PO SCH ×2 (08:38→17:26)
[2021-12-02] MEDS: ASCORBIC ACID 500 MG TABLET PO SCH (08:38)
[2021-12-02] MEDS: METOPROLOL TARTRATE 50 MG TABLET PO SCH ×2 (08:38→17:24)
[2021-12-02] MEDS: CHOLECALCIFEROL 1,000 UNIT TABLET (VIT D3) PO SCH (08:38)
[2021-12-02] MEDS: CLOTRIMAZOLE 1% 15 GM TUBE TP SCH ×2 (09:25→17:27)
[2021-12-02] MEDS: Z GUARD REMEDY 4 OZ OINT TP SCH ×2 (09:25→22:02)
[2021-12-02] MEDS: RIVAROXABAN 10 MG TABLET PO SCH (17:25)
--- NOTE | 2021-12-02 19:10 | NUR ---
RN CLOSING NOTE PATIENT IS IN BED, ON CONDE'S POSITION. ALERT, ORIENTED X 2. WITH 02 VIA NASAL CANNULA AT 5L/MIN, WITH O2 SATURATION AT 91%. DENIES PAIN, NOT IN OBVIOUS DISTRESS. ON WIND INSTRUMENT REPAIRER, SINUS RHTYHM AT 99 BPM. WITH CALLAWAY CATHETER DRAINING TO YELLOW COLORED URINE. WITH RIGHT UPPER ARM MIDLINE INTACT, PATENT AND WITH NO SIGNS OF INFILTRATION. BED IS LOCKED IN THE LOWEST POSITION, 3 GUARD RAILS RAISED, CALL LILLY WITHIN REACH, AND ALL HOSPITAL PRECAUTIONS ARE IN PLACE. ALL DUE MEDICATIONS GIVEN. WILL ENDORSE TO HHAS..
--- NOTE | 2021-12-02 19:20 | NUR ---
RN NOTE RECEIVED PT IN BED ON HIGH CONDE'S, ASLEEP, EASILY AROUSABLE TO STIMULI. VERBAL, A/OX2, ABLE TO MAKE NEEDS KNOWN. RESPIRATIONS EVEN AND DEEP, ON O2 @5LPM, O2 SAT 90-93%. PT DENIES ANY PAIN AT THIS TIME. IV SITE: BERNA MIDLINE INTACT/PATENT/FLUSHES WELL. F/C IN PLACE, DRAINING CLEAR YELLOW URINE. TELE MONITOR READING SR, HR 72. PT IN NO ACUTE DISTRESS. SAFETY MEASURES IN PLACE. WILL CONT TO MONITOR.
--- NOTE | 2021-12-02 23:24 | NUR ---
RT NOTE PT WANTS TO BE PLACED ON BIPAP AFTER TX GIVEN. WILL ATTEMPT TO PLACED ON BIPAP AFTER TX GIVEN.
--- NOTE | 2021-12-02 23:35 | NUR ---
RT NOTE PT PLACED ON BIPAP WITH CURRENT MD ORDERED SETTINGS. WILL CONTINUE TO MONITOR T/O SHIFT.
[2021-12-03] VITALS: BP 144/97
--- NOTE | 2021-12-03 00:27 | NUR ---
RT NOTE PT REMOVED BIPAP. REFUSED TO HAVE IT PLACED BACK STATED: "DOESN'T WANT IT ALL NIGHT OR RIGHT NOW" RN OPAL WAS PRESENT IN THE ROOM WHEN PT DENIED TO BE PLACED BACK ON THE BIPAP. NO SOB OR S/S OF ACUTE RESPIRATORY DISTRESS NOTED. WILL CONTINUE TO MONITOR T/O SHIFT.
[2021-12-03] MEDS: ALBUTEROL HALF STRENGTH 1.25 MG/3 ML VIAL.NEB NEB SCH ×6 (02:54→22:44)
[2021-12-03] MEDS: IPRATROPIUM NEB FS 0.5 MG/2.5 ML AMPUL.NEB NEB SCH ×6 (02:54→22:44)
[2021-12-03 04:00] VITALS: BP 130/92
--- NOTE | 2021-12-03 06:43 | NUR ---
RN NOTE PT ASLEEP, EASILY AROUSABLE. ON HIGH CONDE'S. RESPIRATIONS EVEN AND DEEP, CONT ON O2 @5LPM, O2 SAT 91-94%. PT DENIES ANY PAIN. TELE MONITOR READING ST, HR 106. PT SLEPT INTERMITTENTLY DURING THE NIGHT. PT IN NO ACUTE DISTRESS. SAFETY MEASURES MAINTAINED.
--- NOTE | 2021-12-03 07:50 | NUR ---
RN OPENING NOTE PATIENT IS IN BED, ON CONDE'S POSITION. ALERT, ORIENTED X 3. WITH 02 VIA NASAL CANNULA AT 5L/MIN. DENIES PAIN, NOT IN OBVIOUS DISTRESS. ON WET MACHINE OPERATOR . WITH CALLAWAY CATHETER DRAINING TO YELLOW COLORED URINE. WITH RIGHT UPPER ARM MIDLINE INFUSING WITH NS AT 75 ML/HR, INTACT, PATENT AND WITH NO SIGNS OF INFILTRATION. BED IS LOCKED IN THE LOWEST POSITION, 3 GUARD RAILS RAISED, CALL LILLY WITHIN REACH, AND ALL HOSPITAL PRECAUTIONS ARE IN PLACE.
[2021-12-03 08:00] VITALS: BP 154/108
[2021-12-03] MEDS: ALBUTEROL FS 2.5 MG/3 ML VIAL.NEB NEB PRN (08:14)
[2021-12-03] MEDS: risperiDONE 0.25 MG TABLET PO SCH ×2 (08:40→16:35)
[2021-12-03] MEDS: DILTIAZEM HCL 30 MG TABLET PO SCH ×3 (08:40→16:35)
[2021-12-03] MEDS: ASCORBIC ACID 500 MG TABLET PO SCH (08:40)
[2021-12-03] MEDS: FUROSEMIDE 20 MG TABLET PO SCH (08:41)
[2021-12-03] MEDS: PANTOPRAZOLE 40 MG TABLET.DR PO SCH (08:41)
[2021-12-03] MEDS: METOPROLOL TARTRATE 50 MG TABLET PO SCH ×2 (08:41→16:37)
[2021-12-03] MEDS: CHOLECALCIFEROL 1,000 UNIT TABLET (VIT D3) PO SCH (08:41)
[2021-12-03] MEDS: methylPREDNISolone SOD SUCC 125 MG/2ML VIAL IV SCH ×2 (08:41→16:34)
[2021-12-03] MEDS: CLOTRIMAZOLE 1% 15 GM TUBE TP SCH ×2 (08:42→16:36)
[2021-12-03] MEDS: Z GUARD REMEDY 4 OZ OINT TP SCH ×2 (08:43→20:26)
[2021-12-03 12:00] VITALS: BP 140/94
[2021-12-03] MEDS ORDERED: CEFTRIAXONE 1 G in IV D5W 50 ML IV SCH ×4 (13:00)
[2021-12-03] MEDS: AZITHROMYCIN 250 MG TABLET PO SCH (13:48)
[2021-12-03 16:00] VITALS: BP 139/95
[2021-12-03] MEDS: RIVAROXABAN 10 MG TABLET PO SCH (16:36)
[2021-12-03] MEDS: IV NS 0.9% 250 ML IV PRN (16:49)
--- NOTE | 2021-12-03 18:10 | NUR ---
RN NOTE PERFORMED WOUND CARE ON PATIENT, PATIENT REMOVED DRESSING, EXPLAINED TO PATIENT THE IMPORTANCE, REFUSED DRESSING.
--- NOTE | 2021-12-03 18:39 | NUR ---
RN CLOSING NOTE PATIENT IS IN BED, ON CONDE'S POSITION. ALERT, ORIENTED X 2. WITH 02 VIA NASAL CANNULA AT 5L/MIN. DENIES PAIN, NOT IN OBVIOUS DISTRESS. ON HOUSING AND RESIDENCE LIFE DIRECTOR, SINUS RHTYH. WITH CALLAWAY CATHETER DRAINING TO YELLOW COLORED URINE. WITH RIGHT UPPER ARM MIDLINE INTACT, PATENT AND WITH NO SIGNS OF INFILTRATION. BED IS LOCKED IN THE LOWEST POSITION, 3 GUARD RAILS RAISED, CALL LILLY WITHIN REACH, AND ALL HOSPITAL PRECAUTIONS ARE IN PLACE. ALL DUE MEDICATIONS GIVEN. WILL ENDORSE TO PICKER AND SORTER LOAD AND UNLOAD.
--- NOTE | 2021-12-03 19:11 | NUR ---
RT NOTE ASKED PT WHAT TIME HE WANTED TO GO ON THE BIPAP. HE STATED HE DOESNT WANT TO GO ON TONIGHT. NO SOB NOTED. NO S/S OF ACUTE RESPIRATORY DISTRESS NOTED. WILL CONTINUE TO MONITOR AND WILL ASK AGAIN LATER.
--- NOTE | 2021-12-03 19:20 | NUR ---
TELE1 RN NOTES RECEIVED ON BED,A/O X3-4,ABLE TO VERBALIZE NEEDS.ON SITTING POSITION,NO SOB NOTED,O2 IN USED AT 5L/NC TO KEEP O2 SAT ABOVE 90%.WITH BERNA MIDLINE FOR MEDS.NS AT TKO RATE.RT AT BEDSIDE FOR SCHEDULED BREATHING TREATMENT.CALLAWAY CATH IN PLACE DRAINING CLEAR YELLOW OUTPUT.FALL PRECAUTION OBSERVED,BED ON LOWEST POSITION AND LOCKED,BED ALARM,CALL LIGHT IN REACH,NEEDS ANTICIPATED.
[2021-12-03 20:00] VITALS: BP 120/89
--- NOTE | 2021-12-03 22:55 | NUR ---
RT NOTE PT REFUSED BIPAP. WHILE EATING SAID HE DOESN'T LIKE THAT MACHINE. NO SOB NOTED. TX GIVEN VIA HHN. NO SOB NOTED. NO S/S OF ACUTE RESPIRATORY DISTRESS NOTED. WILL CONTINUE TO MONITOR T/O SHIFT. NREMT NOTIFIED.
[2021-12-04] VITALS: BP 135/90
[2021-12-04] MEDS: IPRATROPIUM NEB FS 0.5 MG/2.5 ML AMPUL.NEB NEB SCH ×6 (02:32→23:08)
[2021-12-04] MEDS: ALBUTEROL HALF STRENGTH 1.25 MG/3 ML VIAL.NEB NEB SCH ×6 (02:32→23:08)
[2021-12-04 04:00] VITALS: BP 133/99
--- NOTE | 2021-12-04 06:27 | NUR ---
TELE1 RN NOTES NO EPISODE OF SOB NOTED.02 SAT WITH NORMAL LIMITS.HAS BEEN ASKING FOR FOOD HALF OF THE NIGHT.I8N NO ACUTE DISTRESS.CALL LIGHT IN REACH,NEEDS ATTENDED.
--- NOTE | 2021-12-04 07:05 | NUR ---
REFUND SPECIALIST OPENING NOTES: PATIENT IS IN BED, ON CONDE'S POSITION. ALERT, ORIENTED X 3. WITH 02 VIA NASAL CANNULA AT 5L/MIN. DENIES PAIN, NOT IN OBVIOUS DISTRESS. ON OIL LEASE OPERATOR . WITH CALLAWAY CATHETER DRAINING TO YELLOW COLORED URINE. WITH RIGHT UPPER ARM MIDLINE INTACT AND PATENT AND WITH NO SIGNS OF INFILTRATION. BED IS LOCKED IN THE LOWEST POSITION, 3 GUARD RAILS RAISED, CALL LILLY WITHIN REACH, AND ALL HOSPITAL PRECAUTIONS ARE IN PLACE.
[2021-12-04] MEDS: PANTOPRAZOLE 40 MG TABLET.DR PO SCH (07:55)
[2021-12-04 08:00] VITALS: BP 155/99
[2021-12-04] MEDS: methylPREDNISolone SOD SUCC 125 MG/2ML VIAL IV SCH ×2 (09:28→16:44)
[2021-12-04] MEDS: DILTIAZEM HCL 30 MG TABLET PO SCH ×3 (09:29→16:47)
[2021-12-04] MEDS: risperiDONE 0.25 MG TABLET PO SCH ×2 (09:30→16:46)
[2021-12-04] MEDS: CHOLECALCIFEROL 1,000 UNIT TABLET (VIT D3) PO SCH (09:30)
[2021-12-04] MEDS: ASCORBIC ACID 500 MG TABLET PO SCH (09:30)
[2021-12-04] MEDS: FUROSEMIDE 20 MG TABLET PO SCH (09:30)
[2021-12-04] MEDS: METOPROLOL TARTRATE 50 MG TABLET PO SCH ×2 (09:31→16:46)
[2021-12-04] MEDS: CLOTRIMAZOLE 1% 15 GM TUBE TP SCH ×2 (09:32→16:47)
[2021-12-04] MEDS: Z GUARD REMEDY 4 OZ OINT TP SCH ×2 (09:32→20:05)
[2021-12-04 12:00] VITALS: BP 126/88
[2021-12-04] MEDS ORDERED: CEFEPIME 1 GM in IV D5W 50 ML IV SCH (12:30)
[2021-12-04] MEDS: AZITHROMYCIN 250 MG TABLET PO SCH (13:28)
[2021-12-04] MEDS: CEFEPIME 2 GM in IV D5W 100 ML IV SCH ×2 (13:39→20:04)
[2021-12-04 16:00] VITALS: BP 123/87
[2021-12-04] MEDS: RIVAROXABAN 10 MG TABLET PO SCH (16:45)
--- NOTE | 2021-12-04 19:24 | NUR ---
lock fitter closing notes Pt is resting in bed comfortably. Pt is alert and orientedX2-3 with episode of confusion. On 3 L NC. No SOB. No S/S of distress noted. RAC# 20 is clean, intact . Tele monitor showed SR . Routine meds were given as ordered. Kept Pt clean, dry and comfortable. Safety precautions is maintained. Bed at low position, brakes locked, bed alarm is on, side rails upX3, hob elevated, call light is within reach. Will endorse to am nurse for NIA.
--- NOTE | 2021-12-04 19:43 | NUR ---
RN NOTE PATIENT IN BED, ALERT AND ORIENTED X3. ON O2 5L VIA NASAL CANNULA. RECEIVING BREATHING TX AT THIS TIME. DENIES ANY PAIN. CALLAWAY CATH IN PLACE, DRAINING VIA GRAVITY. BERNA MIDLINE, PATENT AND INTACT. BED LOCKED AND IN LOWEST POSITION. CALL LIGHT WITHIN REACH. ALL NEEDS ANTICIPATED.
[2021-12-04 20:00] VITALS: BP 122/86
--- NOTE | 2021-12-04 21:31 | NUR ---
RT NOTE PT REQUESTED TO BE REMOVED FROM NOC BIPAP. EXPLAINED BENEFITS TO PTS ABOUT HAVING IT ON. STILL WANTED IT OFF. PLACED ON 5LPM NC. NO SOB OR S/S OF ACUTE RESPIRATORY DISTRESS NOTED. WILL CONTINUE TO MONITOR T/O SHIFT. RN AWARE.
[2021-12-05] VITALS: BP 135/91
--- NOTE | 2021-12-05 02:30 | NUR ---
RN NOTE ENDORSE TO NOVA RN FOR CONTINUATION OF CARE.
--- NOTE | 2021-12-05 02:53 | NUR ---
MALTED MILK SUPERVISOR NOTES RECEIVED PATIENT LYING IN BED WITH EYES CLOSED. EASY TO AROUSE. NO ACUTE DISTRESS NOTED. CURRENTLY ON O2 AT 5LPM VIA NC. HAS BERNA MIDLINE DRESSING C/D/I. HAS F/C DRAINING CLEAR YELLOW URINE VIA GRAVITY. SAFETY PRECAUTIONS IN PLACE. WILL CONTINUE PLAN OF CARE.
[2021-12-05] MEDS: IPRATROPIUM NEB FS 0.5 MG/2.5 ML AMPUL.NEB NEB SCH ×7 (03:14→23:49)
[2021-12-05] MEDS: ALBUTEROL HALF STRENGTH 1.25 MG/3 ML VIAL.NEB NEB SCH ×7 (03:14→23:49)
[2021-12-05 04:00] VITALS: BP 129/89
[2021-12-05] MEDS: CEFEPIME 2 GM in IV D5W 100 ML IV SCH ×3 (04:10→20:55)
--- NOTE | 2021-12-05 04:22 | NUR ---
RT NOTE PATIENT FIO2 TITRATED TO 2LPM NC PER DR. HORNE TO MAINTAIN O2 SAT 88-90% RN AWARE. PATIENT SPO2 93% RR 18, NO RESPIRATORY DISTRESS NOTED AT THIS TIME. Addendum: 12/05/21 at 0425 by ELEUTERIO NIEVES RT Amended: Links added.
[2021-12-05 06:56] LABS: BASOPHILS % (AUTO) 0.2 % (0.0-2.0); HEMATOCRIT 37 % (39-51); HEMOGLOBIN 12.6 g/dL (13.5-17.5); LYMPHOCYTES % (AUTO) 0.3 % (20.0-44.0); MEAN CORPUSCULAR HGB CONC 34 g/dl (31.0-36.0); MEAN CORPUSCULAR VOLUME 87 fL (80-96); MONOCYTES # (AUTO) 0.5 K/uL (0.1-1.30); MONOCYTES % (AUTO) 8.3 % (2.0-12.0); NEUTROPHILS # (AUTO) 5.6 K/uL (1.8-8.9); NEUTROPHILS % (AUTO) 91.2 % (43.0-81.0); PLATELET COUNT (AUTO) 193 K/uL (150-450); RED BLOOD CELL COUNT(AUTO) 4.27 MIL/uL (4.5-6.0); WHITE BLOOD COUNT (AUTO) 6.2 K/uL (4.3-11.0)
--- NOTE | 2021-12-05 06:59 | NUR ---
STATION BAGGAGE AGENT CLOSING NOTES PATIENT LYING IN BED ASLEEP, EASY TO AROUSE. A/O X3. ABLE TO VERBALIZE NEEDS. ON O2 TITRATED AT 2 LPM VIA NC SATURATING AT 92%. HAS BERNA MIDLINE WITH NS RUNNING TKO. INTACT, PATENT AND FLUSHING. HAS F/C DRAINING CLEAR YELLOW URINE VIA GRAVITY. BM X1, SOFT AND BROWN STOOL NOTED. ALL NEEDS ATTENDED. SPONGE BATH AND BACK CARE RENDERED. KEPT DRY AND COMFORTABLE. SAFETY PRECAUTIONS IN PLACE: BED LOW AND LOCKED, SIDE RAILS UP X3, CALL LIGHT WITHIN REACH.
[2021-12-05 07:07] LABS: CALCIUM, SERUM 8.2 mg/dL (8.5-10.1); CREATININE 0.4 mg/dL (0.6-1.3); POTASSIUM 4.4 mmol/L (3.5-5.1)
--- NOTE | 2021-12-05 07:13 | NUR ---
ON TELE MONITOR READING SINUS RHYTHM AT 84 BPM.
[2021-12-05 08:00] VITALS: BP 134/92
--- NOTE | 2021-12-05 08:00 | NUR ---
INSTANTIZER OPERATOR OPENING NOTES RECEIVED PATIENT LYING IN BED AWAKE, A/O X3. ABLE TO VERBALIZE NEEDS. ON O2 TITRATED AT 2 LPM VIA NC SATURATING AT 92%. HAS BERNA MIDLINE WITH NS RUNNING TKO. INTACT, PATENT AND FLUSHING. HAS F/C DRAINING CLEAR YELLOW URINE VIA GRAVITY. SAFETY PRECAUTIONS IN PLACE: BED LOW AND LOCKED, SIDE RAILS UP X3, CALL LIGHT WITHIN REACH. WILL CONTINUE WITH THE PLAN OF CARE.
[2021-12-05] MEDS: PANTOPRAZOLE 40 MG TABLET.DR PO SCH (08:30)
[2021-12-05] MEDS: DILTIAZEM HCL 30 MG TABLET PO SCH ×3 (08:35→16:11)
[2021-12-05] MEDS: ASCORBIC ACID 500 MG TABLET PO SCH (08:44)
[2021-12-05] MEDS: FUROSEMIDE 20 MG TABLET PO SCH (08:44)
[2021-12-05] MEDS: METOPROLOL TARTRATE 50 MG TABLET PO SCH ×2 (08:44→16:11)
[2021-12-05] MEDS: CHOLECALCIFEROL 1,000 UNIT TABLET (VIT D3) PO SCH (08:45)
[2021-12-05] MEDS: risperiDONE 0.25 MG TABLET PO SCH ×2 (08:46→16:11)
[2021-12-05] MEDS: CLOTRIMAZOLE 1% 15 GM TUBE TP SCH ×2 (08:47→16:12)
[2021-12-05] MEDS: Z GUARD REMEDY 4 OZ OINT TP SCH ×2 (08:47→20:55)
[2021-12-05] MEDS: methylPREDNISolone SOD SUCC 125 MG/2ML VIAL IV SCH (08:49)
[2021-12-05 12:28] VITALS: BP 140/95
[2021-12-05] MEDS: AZITHROMYCIN 250 MG TABLET PO SCH (12:40)
[2021-12-05] MEDS: RIVAROXABAN 10 MG TABLET PO SCH (16:36)
[2021-12-05 16:38] VITALS: BP 126/87
--- NOTE | 2021-12-05 19:41 | NUR ---
ORGANISATIONAL PSYCHOLOGIST OPENING NOTE PATIENT AWAKE IN BED, ALERT/ORIENTED X 3 WITH PERIODS OF CONFUSION PER DAYSHIFT NURSE. PATIENT STABLE ON 2 LPM OF OXYGEN VIA NASAL CANNULA, NO S/S OF RESPIRATORY DISTRESS OR SOB NOTED, BREATHING EVEN AND UNLABORED. PT ON TELE MONITORING. CALLAWAY CATH IN PLACE AND DRAINING YELLOW URINE VIA GRAVITY. BERNA MIDLINE INTACT AND SALINE LOCKED. SAFETY MEASURES IN PLACE: CALL LIGHT WITHIN REACH, SIDE RAILS UP X 2, BED LOCKED IN LOWEST POSITION, HOB ELEVATED, BED ALARM ON. WILL CONTINUE TO MONITOR PATIENT
[2021-12-05 20:00] VITALS: BP 102/79
[2021-12-06] VITALS: BP 137/90
[2021-12-06] MEDS ORDERED: IOHEXOL-300 100 ML VIAL IV ONE (00:06)
[2021-12-06] MEDS ORDERED: IV NS 0.9% 250 ML IV ONE (00:06)
--- NOTE | 2021-12-06 01:10 | NUR ---
rt called to pt augustine. pt removed bipap and refusing bipasp at this time Addendum: 12/06/21 at 0413 by SILVINA RYAN RT Amended: Links added.
[2021-12-06 04:00] VITALS: BP 113/83
[2021-12-06] MEDS: IPRATROPIUM NEB FS 0.5 MG/2.5 ML AMPUL.NEB NEB SCH ×6 (04:01→23:02)
[2021-12-06] MEDS: ALBUTEROL HALF STRENGTH 1.25 MG/3 ML VIAL.NEB NEB SCH ×6 (04:01→23:02)
[2021-12-06] MEDS: CEFEPIME 2 GM in IV D5W 100 ML IV SCH ×3 (05:34→22:08)
--- NOTE | 2021-12-06 06:48 | NUR ---
GIOVANNI PULIDO FOR MRI APPROVAL.
--- NOTE | 2021-12-06 07:46 | NUR ---
HAM BONER CLOSING NOTES PATIENT SLEEPING IN BED, ALERT/ORIENTED X 3 WITH PERIODS OF CONFUSION. PATIENT STABLE ON 2 LPM OF OXYGEN VIA NASAL CANNULA, NO S/S OF RESPIRATORY DISTRESS OR SOB NOTED, BREATHING EVEN AND UNLABORED. PT ON TELE MONITORING READING SINUS RHYTHM, HR: 90. CALLAWAY CATH IN PLACE AND DRAINING YELLOW URINE VIA GRAVITY. BERNA MIDLINE INTACT AND SALINE LOCKED. MEDICATIONS GIVEN ORDERED, PT NEEDS MET THROUGHOUT SHIFT, PATIENT TURNED Q2H, HYGIENE CARE PROVIDED. SAFETY MEASURES IN PLACE: CALL LIGHT WITHIN REACH, SIDE RAILS UP X 2, BED LOCKED IN LOWEST POSITION, HOB ELEVATED, BED ALARM ON. ENDORSED TO DAY SHIFT NURSE FOR CONTINUITY OF CARE
[2021-12-06 08:00] VITALS: BP 123/86
--- NOTE | 2021-12-06 08:03 | NUR ---
MRI NOT APPROVED BY DR. PULIDO
[2021-12-06] MEDS ORDERED: DIATR MEGLU/DIATRIZOATE SODIUM 30 ML BOTTLE (GASTROGRAPHIN) ONE (08:58)
[2021-12-06] MEDS ORDERED: FUROSEMIDE 20 MG/2 ML VIAL IV SCH (09:00)
[2021-12-06] MEDS: CHOLECALCIFEROL 1,000 UNIT TABLET (VIT D3) PO SCH (09:14)
[2021-12-06] MEDS: PANTOPRAZOLE 40 MG TABLET.DR PO SCH (09:14)
[2021-12-06] MEDS: ASCORBIC ACID 500 MG TABLET PO SCH (09:14)
[2021-12-06] MEDS: risperiDONE 0.25 MG TABLET PO SCH ×2 (09:15→16:42)
[2021-12-06] MEDS: DILTIAZEM HCL 30 MG TABLET PO SCH ×3 (09:15→16:40)
[2021-12-06] MEDS: METOPROLOL TARTRATE 50 MG TABLET PO SCH ×2 (09:15→16:43)
[2021-12-06] MEDS: methylPREDNISolone SOD SUCC 125 MG/2ML VIAL IV SCH (09:16)
[2021-12-06] MEDS: FUROSEMIDE 20 MG/2 ML VIAL IV SCH (09:17)
--- NOTE | 2021-12-06 10:47 | NUR ---
RN NOTE PT LEFT UNIT FOR CT SCAN ABD, PT NOT IN DISTRESS. V/S STABLE. WILL MONITOR.
[2021-12-06 10:50] LABS: ABG BASE EXCESS 7.6 mmol/L; ABG PCO2 55.4 mmHg (35.0-45.0); ABG PH 7.407 (7.350-7.450); ABG PO2 61.8 mmHg (75.0-100.0); COHb 0.6 % (0.5-1.5); MetHb 0.3 % (0.0-1.5); O2Hb 90.6 % (94.0-97.0); SITE, ABG Right Radial; VENT MODE, BG N/C
[2021-12-06 12:00] VITALS: BP 108/79
[2021-12-06] MEDS ORDERED: CEFE2FRO IV (12:29)
[2021-12-06] MEDS ORDERED: AZIT250T PO (12:29)
[2021-12-06] MEDS ORDERED: PRED20TA PO ×2 (12:29)
[2021-12-06] MEDS: AZITHROMYCIN 250 MG TABLET PO SCH (13:28)
[2021-12-06] MEDS: Z GUARD REMEDY 4 OZ OINT TP SCH ×2 (13:30→22:09)
[2021-12-06] MEDS: CLOTRIMAZOLE 1% 15 GM TUBE TP SCH ×2 (13:30→17:56)
[2021-12-06 16:00] VITALS: BP 128/80
[2021-12-06] MEDS: RIVAROXABAN 10 MG TABLET PO SCH (16:42)
--- NOTE | 2021-12-06 19:33 | NUR ---
REFUSE DRIVER NOTES PATIENT RESTING IN BED, ALERT/ORIENTED X 3 WITH EPISODES OF CONFUSION. ON 02 @ 2LPM OF OXYGEN VIA NASAL CANNULA. PT ON TELE MONITORING READING SINUS RHYTHM, HR: 90. CALLAWAY CATH IN PLACE AND DRAINING WELL. BERNA MIDLINE INTACT AND SALINE LOCKED. ALL MEDICATIONS GIVEN. PT NEEDS ATTENDED. AM/PM HYGIENE CARE PROVIDED. SAFETY MEASURES FOLLOWED. CALL LIGHT WITHIN REACH, SIDE RAILS UP X 2, BED LOCKED IN LOWEST POSITION, HOB ELEVATED, BED ALARM ON.
--- NOTE | 2021-12-06 19:41 | NUR ---
RN OPENING NOTES RECEIVED PATIENT IN BED, AWAKE, ALERT/ORIENTED X 3 WITH EPISODES OF CONFUSION AND VERBALLY RESPONSIVE. ON 2 L/M VIA N/C AND PT TOLERATED WELL. BREATHING EVEN AND UNLABORED. IV ACCESS ON BERNA MIDLINE INTACT AND PATENT. NO S/S OF INFILTRATIONS. NO C/O PAIN OR DISCOMFORT. NO ACUTE DISTRESS. CALLAWAY CATH IN PLACE AND DRAINING YELLOW/CLEAR URINE. ALL SAFETY MEASURES IN PLACE. SIDE RAILS UP X 2, BED IN LOWEST POSITION AND LOCKED, HOB ELEVATED, BED ALARM ON. PLACE CALL LIGHT WITH IN REACH. WILL CONTINUE TO MONITOR.
[2021-12-06 20:00] VITALS: BP 118/86
[2021-12-07] VITALS: BP 121/91
[2021-12-07] MEDS: ALBUTEROL HALF STRENGTH 1.25 MG/3 ML VIAL.NEB NEB SCH ×6 (03:30→23:48)
[2021-12-07] MEDS: IPRATROPIUM NEB FS 0.5 MG/2.5 ML AMPUL.NEB NEB SCH ×6 (03:30→23:48)
[2021-12-07 04:00] VITALS: BP 128/94
[2021-12-07] MEDS: CEFEPIME 2 GM in IV D5W 100 ML IV SCH ×3 (04:54→20:50)
--- NOTE | 2021-12-07 06:36 | NUR ---
RN CLOSING NOTES PATIENT IN BED, SLEEPING BUT EASILY AROUSABLE, ALERT/ORIENTED X 3 WITH EPISODES OF CONFUSION AND VERBALLY RESPONSIVE. ON 2 L/M VIA N/C, O2 SAT 94% AND PT TOLERATED WELL. IV ACCESS ON BERNA MIDLINE INTACT AND PATENT. NO S/S OF INFILTRATIONS. NO C/O PAIN OR DISCOMFORT. NO ACUTE DISTRESS. CALLAWAY CATH IN PLACE AND DRAINING YELLOW/CLEAR URINE. ALL DUE MEDS GIVEN PER ORDERED. ALL SAFETY MEASURES IN PLACE. SIDE RAILS UP X 2, BED IN LOWEST POSITION AND LOCKED, HOB ELEVATED, BED ALARM ON. PLACE CALL LIGHT WITH IN REACH. WILL ENDORSE TO MORNING SHIFT NURSE.
--- NOTE | 2021-12-07 07:15 | NUR ---
RN OPENING NOTES RECEIVED PATIENT IN BED, AWAKE, ALERT/ORIENTED X 3 WITH EPISODES OF CONFUSION AND VERBALLY RESPONSIVE. ON 2 LPM VIA N/C AND PT TOLERATED WELL. BREATHING EVEN AND UNLABORED. NO ACUTE DISTRESS NOTED AT THE TIME. IV ACCESS ON BERNA MIDLINE INTACT AND PATENT. NO S/S OF INFILTRATIONS. NO C/O PAIN OR DISCOMFORT. CALLAWAY CATH IN PLACE AND DRAINING YELLOW/CLEAR URINE. ALL SAFETY MEASURES IN PLACE. SIDE RAILS UP X 2, BED IN LOWEST POSITION AND LOCKED, HOB ELEVATED, BED ALARM ON. PLACE CALL LIGHT WITH IN REACH. WILL CONTINUE TO MONITOR AND ASSESS FOR ANY CHANGES DURING SHIFT.
[2021-12-07 08:00] VITALS: BP 127/90
[2021-12-07] MEDS: ASCORBIC ACID 500 MG TABLET PO SCH (08:38)
[2021-12-07] MEDS: methylPREDNISolone SOD SUCC 125 MG/2ML VIAL IV SCH (08:38)
[2021-12-07] MEDS: risperiDONE 0.25 MG TABLET PO SCH ×2 (08:38→16:43)
[2021-12-07] MEDS: FUROSEMIDE 20 MG/2 ML VIAL IV SCH (08:38)
[2021-12-07] MEDS: PANTOPRAZOLE 40 MG TABLET.DR PO SCH (08:38)
[2021-12-07] MEDS: METOPROLOL TARTRATE 50 MG TABLET PO SCH ×2 (08:38→16:43)
[2021-12-07] MEDS: DILTIAZEM HCL 30 MG TABLET PO SCH ×3 (08:39→16:43)
[2021-12-07] MEDS: CHOLECALCIFEROL 1,000 UNIT TABLET (VIT D3) PO SCH (08:39)
[2021-12-07] MEDS: Z GUARD REMEDY 4 OZ OINT TP SCH ×2 (08:40→20:52)
[2021-12-07] MEDS: CLOTRIMAZOLE 1% 15 GM TUBE TP SCH ×2 (08:40→16:53)
[2021-12-07] MEDS: ALBUTEROL FS 2.5 MG/3 ML VIAL.NEB NEB PRN ×2 (10:24→13:52)
[2021-12-07 12:00] VITALS: BP 94/67
[2021-12-07] MEDS: AZITHROMYCIN 250 MG TABLET PO SCH (12:14)
[2021-12-07 16:00] VITALS: BP 127/88
[2021-12-07] MEDS: RIVAROXABAN 10 MG TABLET PO SCH (16:45)
--- NOTE | 2021-12-07 18:58 | NUR ---
RN CLOSING NOTES PATIENT REMAINS IN STABLE CONDITION THROUGHOUT SHIFT. PATIENT IN BED, AWAKE, ALERT/ORIENTED X 3 WITH EPISODES OF CONFUSION AND VERBALLY RESPONSIVE. ON 2 LPM VIA N/C AND PT TOLERATED WELL WITH SATURATION OF 94%. BREATHING EVEN AND UNLABORED. NO ACUTE DISTRESS NOTED AT THE TIME. IV ACCESS ON BERNA MIDLINE INTACT AND PATENT. NO S/S OF INFILTRATIONS. ALL DUE MEDS GIVEN ORDERED. ALL NEEDS ANTICIPATED. KEPT PATIENT CLEAN DRY AND COMFORTABLE. WOUND CARE RENDERED. CALLAWAY CATH IN PLACE AND DRAINING YELLOW/CLEAR URINE. ALL SAFETY MEASURES IN PLACE. SIDE RAILS UP X 2, BED IN LOWEST POSITION AND LOCKED, HOB ELEVATED, BED ALARM ON. PLACE CALL LIGHT WITH IN REACH. WILL ENDORSE TO ONCOMING NURSE FOR CONTINUITY OF CARE.
--- NOTE | 2021-12-07 19:53 | NUR ---
RT PT RECVD AWAKE AND VERBAL ON 3 LPM NC. TX GIVEN NO ADVERSE REACTION NOTED. NO SOB OR RESPIRATORY DISTRESS NOTED AT THIS TIME.
[2021-12-07 20:00] VITALS: BP 115/79
[2021-12-07] MEDS: HYDROCODONE/APAP 5/325MG TABLET PO PRN (23:09)
--- NOTE | 2021-12-07 23:15 | NUR ---
RN NOTES: PT C/O GENERALIZED BODY PAIN, 7/10 PAIN SCALE. NORCO GIVEN PER PRN ORDER AND PT TOLERATED WELL. WILL CONTINUE TO MONITOR
[2021-12-08] VITALS: BP 134/97
[2021-12-08] MEDS: ALBUTEROL HALF STRENGTH 1.25 MG/3 ML VIAL.NEB NEB SCH ×4 (03:34→15:12)
[2021-12-08] MEDS: IPRATROPIUM NEB FS 0.5 MG/2.5 ML AMPUL.NEB NEB SCH ×4 (03:34→15:12)
[2021-12-08 04:00] VITALS: BP 116/80
[2021-12-08] MEDS: CEFEPIME 2 GM in IV D5W 100 ML IV SCH (04:53)
--- NOTE | 2021-12-08 06:40 | NUR ---
RN CLOSING NOTES PATIENT IN BED, AWAKE, ALERT/ORIENTED X 3 WITH EPISODES OF CONFUSION AND VERBALLY RESPONSIVE. ON 2 L/M VIA N/C, O2 SAT 97% AND PT TOLERATED WELL. IV ACCESS ON BERNA MIDLINE INTACT AND PATENT. NO S/S OF INFILTRATIONS. NO C/O PAIN OR DISCOMFORT. NO ACUTE DISTRESS. CALLAWAY CATH IN PLACE AND DRAINING YELLOW/CLEAR URINE. ALL DUE MEDS GIVEN PER ORDERED. ALL SAFETY MEASURES IN PLACE. SIDE RAILS UP X 2, BED IN LOWEST POSITION AND LOCKED, HOB ELEVATED, BED ALARM ON. PLACE CALL LIGHT WITH IN REACH. WILL ENDORSE TO MORNING SHIFT NURSE.
--- NOTE | 2021-12-08 07:05 | NUR ---
RN NOTES RECEIVED PATIENT IN BED, ASLEEP , A/O X 3 EASY TO AROUSE, INTRODUCED SELF TO HIM HIS NURSE NOTED EPISODES OF CONFUSION, PT ON 2 L/M VIA N/C, O2 SAT 98% AND PT TOLERATING ROOM AIR WELL, IV ACCESS ON BERNA MIDLINE INTACT AND PATENT. NO S/S OF INFILTRATIONS OR INFECTION NOTED, NO C/O PAIN OR DISCOMFORT AT THIS TIME, . NO ACUTE DISTRESS, NO SOB NO LABORED BREATHING, CALLAWAY CATH IN PLACE AND DRAINING YELLOW/CLEAR URINE. ALL DUE MEDS GIVEN PER ORDERED. ALL SAFETY MEASURES IN PLACE. SIDE RAILS UP X 2, BED IN LOWEST POSITION AND ALL WHEELS LOCKED, HOB ELEVATED, BED ALARM ON. CALL LIGHT WITH IN REACH.
[2021-12-08 08:00] VITALS: BP 116/92
[2021-12-08] MEDS: risperiDONE 0.25 MG TABLET PO SCH (09:17)
[2021-12-08] MEDS: PANTOPRAZOLE 40 MG TABLET.DR PO SCH (09:19)
[2021-12-08] MEDS: CHOLECALCIFEROL 1,000 UNIT TABLET (VIT D3) PO SCH (09:19)
[2021-12-08] MEDS: DILTIAZEM HCL 30 MG TABLET PO SCH ×2 (09:19→13:06)
[2021-12-08] MEDS: FUROSEMIDE 20 MG/2 ML VIAL IV SCH (09:20)
[2021-12-08] MEDS: METOPROLOL TARTRATE 50 MG TABLET PO SCH (09:20)
[2021-12-08] MEDS: methylPREDNISolone SOD SUCC 125 MG/2ML VIAL IV SCH (09:20)
[2021-12-08] MEDS: ASCORBIC ACID 500 MG TABLET PO SCH (09:21)
[2021-12-08] MEDS: Z GUARD REMEDY 4 OZ OINT TP SCH (10:47)
[2021-12-08] MEDS: CLOTRIMAZOLE 1% 15 GM TUBE TP SCH (10:48)
[2021-12-08 12:00] VITALS: BP 118/88
--- NOTE | 2021-12-08 13:00 | NUR ---
RN NOTES HAD PULLED ABT AZITHROMYCIN DURING AM MED PASS SAVED FOR 1300 DOSE, PLACED IN MEDICATION CUP AND IT SPLILLED OVER BOTH PILLS FELL ONTO FLOOR, HAD TO TERMINATE DOSE FOR SAFETY AND CLEANLINESS SANITATION PURPOSES, AND RE-PULLED DOSE FOR THE 1300 SCHEDULED TIME AT THIS TIME, NO SIDE EFFECTS NOTED, NO ADVERSE REACTION, WILL CONTINUE TO MONITOR .
[2021-12-08] MEDS: AZITHROMYCIN 250 MG TABLET PO SCH (13:07)
[2021-12-08 16:00] VITALS: BP 116/92
--- NOTE | 2021-12-08 18:36 | NUR ---
RN NOTES [facility] VALIDATION SCIENTIST AT [facility], COVID VAX DATES PROVIDED HE HAD 2 VAX PLUS THE BOOSTER, VAX CARD WITH FAMILY MEMBER VERIFIED ALL INFORMATION , ALL INFO FORWARDED ON REPORT SHEET TO RN VALIDATION SCIENTIST, PT STABLE, A/O X 3, ALL VS IN NORMAL BASE LINE RANGE, OXYGEN AT 96% VIA NC IN PLACE, RN VALIDATION SCIENTIST REQUESTED TO KEEP IV INTACT, LEFT IN SITE PATENT FLUSHING NO INFILTRATION NOTED, LEFT AB SITE, SAFE TRANSFER FROM BED TO [facility], ALL BELONGINGS SENT WITH PT OUT,
== END 2021-12-08 18:30 | DRG 193 ==
LOC: ER 01:46 → TRANSITION 05:15 → ICU 08:25 → TELE1 11-29 16:28
PROVIDERS: ADMIT Internal Medicine; ATTEND Nurse Practitioner Acute Care
PROC: 5A09457 Assistance with Respiratory Ventilation, 24-96 Consecutive Hours, Continuous Positive Airway Pressure (ICD-10-PCS; principal; 2021-11-26)
PROC: 05H933Z Insertion of Infusion Device into Right Brachial Vein, Percutaneous Approach (ICD-10-PCS; 2021-11-26)
DX: J15.9 Unspecified bacterial pneumonia (principal); J96.22 Acute and chronic respiratory failure with hypercapnia; G93.41 Metabolic encephalopathy; J96.21 Acute and chronic respiratory failure with hypoxia; J44.1 Chronic obstructive pulmonary disease with (acute) exacerbation; J44.0 Chronic obstructive pulmonary disease with (acute) lower respiratory infection; E87.1 Hypo-osmolality and hyponatremia; J98.11 Atelectasis; D68.59 Other primary thrombophilia; E46 Unspecified protein-calorie malnutrition; Z20.822 Contact with and (suspected) exposure to COVID-19; I48.91 Unspecified atrial fibrillation; K21.9 Gastro-esophageal reflux disease without esophagitis; Z79.51 Long term (current) use of inhaled steroids; Z79.899 Other long term (current) drug therapy; Z86.718 Personal history of other venous thrombosis and embolism; I11.0 Hypertensive heart disease with heart failure; I50.9 Heart failure, unspecified; S51.812A Laceration without foreign body of left forearm, initial encounter; X58.XXXA Exposure to other specified factors, initial encounter; Y92.9 Unspecified place or not applicable; L30.4 Erythema intertrigo; Y95 Nosocomial condition; Z79.01 Long term (current) use of anticoagulants; Z87.891 Personal history of nicotine dependence; E86.1 Hypovolemia; E88.09 Other disorders of plasma-protein metabolism, not elsewhere classified; E87.6 Hypokalemia; D35.02 Benign neoplasm of left adrenal gland; D64.9 Anemia, unspecified; Z85.118 Personal history of other malignant neoplasm of bronchus and lung
CPT/HCPCS: 36415; 36600; 71045-TC; 71250-TC; 80048-TC; 80076-TC; 82378; 82803-TC; 83605-TC; 83735-TC; 83880; 84100-TC; 84484-TC; 85025-TC; 85730-TC; 87040-TC; 87081-TC; 93970-TC; 94660; 94762-TC; 94799-TC; 97110-TC; 97535-TC; C9113; C9803; G0378; J0456; J0692; J0696; J1940; J2270; J2405; J2930; J3475; J3490; J7030; J7050; J7060; Q9963; Q9967